=== PATIENT | female | born 1960 | race Caucasian/White ===

== ENCOUNTER 2016-06-06 09:01 | Emergency (ER) | payer BC ==
[2016-06-06 09:54] LABS: ALBUMIN 4.5 g/dL (3.5-5.0); ALKALINE PHOSPHATASE 544 U/L (38-126); ALT 63 U/L (9-52); AST 76 U/L (14-36); BILIRUBIN, DIRECT 1.8 mg/dL (0.0-0.4); BILIRUBIN, TOTAL 2.6 mg/dL (0.2-1.3); BLOOD UREA NITROGEN 42 mg/dL (7-17); CALCIUM 9.8 mg/dL (8.4-10.2); CHLORIDE 106 mmol/L (98-107); CREATININE 1.6 mg/dL (0.5-1.0); EST GLOMERULAR FILTRATION RATE 35 mL/min; GLUCOSE 93 mg/dL (70-100); LIPASE 105 U/L (23-300); POTASSIUM 4.9 mmol/L (3.5-5.1); SODIUM 139 mmol/L (137-145); TOTAL PROTEIN 7.3 g/dL (6.3-8.2)
[2016-06-06 10:06] LABS: EOSINOPHIL % (Manual) 4 % (0.0-6.0); LYMPHOCYTE % (Manual) 8 % (20.0-40.0); MONOCYTE % (Manual) 2 % (2.0-10.0); NEUTROPHIL % (Manual) 86 % (54.0-75.0); PLATELET ESTIMATE DECREASED
[2016-06-06 10:07] LABS: HELMET CELLS PRESENT; TARGET CELLS PRESENT; TEAR DROP CELLS PRESENT
[2016-06-06] MEDS ORDERED: MORPHINE SULFATE 4 MG/ML SYR ONE ×3 (10:12→13:29)
[2016-06-06] MEDS ORDERED: ONDANSETRON HCL 4 MG/2 ML VIAL ONE (10:12)
[2016-06-06 11:26] LABS: THYROID STIMULATING HORMONE 0.21 uIU/mL (0.47-4.68)
[2016-06-06 11:27] LABS: ABO GROUP TYPE A; ANTIBODY SCREEN NEGATIVE; RH TYPE POSITIVE
[2016-06-06 11:28] LABS: CROSSMATCH IMMEDIATE SPIN COMPATIBLE
--- NOTE | 2016-06-06 11:54 | CT REPORT ---
HISTORY: Right upper quadrant pain. Primary sclerosing cholangitis. COMPARISON: February 02, 2012. TECHNIQUE: 5 mm axial images of the abdomen and pelvis after 90 mL Isovue-300. This examination was performed us ing automated exposure control, adjustment of mA or kV according to patient size, and/or use of itera tive reconstruction technique. FINDINGS: Ill-defined lingular and left lower lobe opacities may represent atelectasis or early infiltrate. Juan Jose cified mitral annulus. Persistent splenomegaly. Spleen measures up to 18 cm in greatest dimension. Liver also remains enlarg ed. Pancreas is unremarkable. The patient is status post cholecystectomy. Postoperative changes are s een in the region of the stomach. Adrenal glands are unremarkable. Left kidney interpolar region 3 mm nonobstructing calculus. Left kidney lower pole 1 mm nonobstructing calculus. Left kidney lower pole 1.3 cm cyst. Dilated portal vein with evidence of gastroesophageal, gastrohepatic, and gastrosplenic varices consi stent with portal hypertension. Urinary bladder is distended. Hysterectomy. No evidence of bowel obstruction. IMPRESSION: 1. Lingular/left lower lobe opacities may represent atelectasis or early infiltrate. 2. Persistent hepatosplenomegaly. 3. Portal hypertension with varices. 4. Cholecystectomy. 5. Left kidney nonobstructing intrarenal calculi. 6. Left kidney lower pole 1.3 cm simple cyst. 7. Prior gastric surgery. 8. Hysterectomy. Results were discussed with the referring physician on 06/06/2016 at 11:52 AM. Final Electronic Signature: This report was electronically signed by Korey Beard MD, FACR on 06/06/2016 11:52 AM. rocío /
[2016-06-06 12:03] LABS: HEMATOCRIT 23.1 % (36.0-48.0); HEMOGLOBIN 7.6 g/dL (12.0-16.0); MEAN CELL VOLUME 68.5 fL (80.0-100.0); MEAN CORPUS. HGB CONCENTRATION 32.9 g/dL (32.0-36.0); MEAN CORPUSCULAR HEMOGLOBIN 22.5 pg (29.0-35.0); MEAN PLATELET VOLUME 8.6 fL (7.4-10.4); PLATELET COUNT 70 X 10^3uL (130-440); RED BLOOD COUNT 3.37 X 10^6uL (4.20-6.10); RED CELL DISTRIBUTION WIDTH 15.8 % (11.5-14.5); WHITE BLOOD COUNT 2.7 X 10^3uL (3.9-10.7)
[2016-06-06 12:07] LABS: URINE MUCUS NONE SEEN (Up to 25%); URINE RBC NONE SEEN (0-5/hpf)
[2016-06-06 12:11] LABS: URINE COLOR YELLOW
[2016-06-06 12:12] LABS: URINE APPEARANCE CLEAR; URINE BACTERIA NONE SEEN (<10/hpf); URINE BILIRUBIN NEGATIVE (NEGATIVE); URINE BLOOD NEGATIVE (NEGATIVE); URINE GLUCOSE NORMAL (NEGATIVE); URINE KETONE NEGATIVE (NEGATIVE); URINE LEUKOCYTE ESTERASE NEGATIVE (NEGATIVE); URINE NITRITE NEGATIVE (NEGATIVE); URINE PH 6.5 (5-7); URINE PROTEIN NEGATIVE (NEG - TRACE); URINE SPECIFIC GRAVITY 1.015 (0.001-1.035); URINE SQUAMOUS EPITHELIAL CELL 0-5/hpf (<= 15/hpf); URINE UROBILINOGEN NORMAL (NEG-1mg/dL); URINE WBC 0-4/hpf (0-4/hpf)
--- NOTE | 2016-06-06 14:00 | ER PHYSICIAN DOCUMENTATION ---
Physician Documentation [facility] Name:Aydee Lund Age:56 yrs Sex:Female :1960 Arrival Date:06/06/2016 Time:09:01 Bed1 Private MD:Narciso Shaw EDMalloryWilmer Disposition: 06/06 19:38 Chart complete. tl1 Disposition: 06/06/16 13:10 Discharged to Home/Self Care. Impression: Abdominal Pain, Right Upper Quadrant. - Condition is Good. - Discharge Instructions: ABDOMINAL PAIN, Unknown Cause, (Female). - Prescriptions for Zofran 4 mg Oral Tablet - take 1-2 tablet by ORAL route every 4-6 hours As needed; 10 tablet. - Medical Reconciliation form form. - Follow up: Narciso Shaw MD; When: 1 - 2 days; Reason: Recheck today's complaints, Continuance of care. - Problem is new. - Symptoms have improved. HPI: 09:26 This 56 yrs old Female presents to ER with complaints of Flank Pain - R. tl1 09:26 The patient complains of pain in the right mid back. tl1 09:40 She has a long h/o MMP, including Primary Sclerosing Cholangitis with chronic liver tl1 failure, portal hypertension, varices and ascites and chronic anemia. She is on the liver transplant list for the last 2-3 years. She also has a h/o UC, Scott's thyroiditis, and renal insufficiency. She has been at her baseline until today when she noted the fairly abrupt onset of right flank and RUQ pain that is somewhat reminiscent of about 10 - 15 years ago when she had shingles. The pain is worse when she moves aroung and better when she holds still. No f/c/s. No n/v. No melena, hematochezia, hematemesis. No h/o nephrolithiasis or hematuria. No other urinary symptoms. No cough or hemoptysis. No trauma. She does have chronic low back pain. Historical: - Allergies: Tetanus Toxoid Adsorbed; Carrot; tetatnus antagin; Rifampin; - Home Meds: 1. aripiprazole oral 2. biotin oral 3. Wellbutrin Oral 4. cyanocobalamin (vitamin B-12) oral 5. Lasix Oral 6. Hydroxyzine Oral 7. Enulose oral 8. levothyroxine oral 9. EMLA Topical 10. multivitamin with minerals oral 11. Prilosec Oral 12. Zofran Oral 13. GlycoLax oral 14. Xifaxan oral 15. Aldactone Oral 16. tramadol Oral 17. Triamcinolone Acetonide Topical - PMHx: primary sclerosing colongitis; polycystic ovarian syndrome; scott's thyroiditis; low functioning kidneys; Asthma; CIRRHOSIS; - PSHx: liver biopsies; port; - Tetanus: > 10 years Other pt is allergic . - Ebola Screening: : Patient denies exposure to infectious person. Patient denies travel to an Ebola-affected area in the 21 days before illness onset. . - Immunization history: Pneumococcal vaccine is up to date. - Social history: Smoking status: Patient states former smoker of tobacco. Patient uses marijuana Patient/guardian denies using alcohol. ROS: 09:40 Abdomen/GI: Positive for abdominal pain, Negative for nausea, vomiting, diarrhea, tl1 constipation, hematemesis, black/tarry stool, rectal bleeding. 09:40 : Negative for urinary symptoms, hematuria, pelvic pain, burning with urination, foul smelling urine, vaginal bleeding, vaginal discharge. 09:40 All other systems are negative. Exam: 09:40 Constitutional: The patient appears alert, awake, well developed, in obvious pain, tl1 restless, uncomfortable. 09:40 Head/face: Exam is negative for acute changes. 09:40 Eyes: Periorbital structures: appear normal, Extraocular movements: intact throughout, Conjunctiva: normal, Sclera: icterus, is present, Lids and lashes: appear normal. 09:40 ENT: Exam is negative for acute changes. 09:40 Neck: Lymph nodes: no appreciated lymphadenopathy. 09:40 Cardiovascular: Rate: normal, Rhythm: regular, Heart sounds: normal. 09:40 Respiratory: the patient does not display signs of respiratory distress, Respirations: normal, Breath sounds: are normal. 09:40 Abdomen/GI: Inspection: abdomen appears normal, Bowel sounds: active, Palpation: soft, mild abdominal tenderness, in the right upper quadrant, Liver: no appreciated palpable abnormalities. 09:40 Back: CVA tenderness, that is mild, is noted on the right, vertebral tenderness, is appreciated at T12, L1, L2 and L3, muscle spasm, is not present. 09:40 : CVA tenderness, on the right, Bladder: tenderness, is not appreciated. 09:40 Skin: Exam negative for rash, specifically, no evidence of shingles on her back, flank, or abdomen.. 09:40 Neuro: Exam negative for acute changes. Vital Signs: 09:00 BP 121 / 42; Pulse 55; Temp 97.9; Pulse Ox 97% on R/A; Pain 7/10; st 10:09 BP 108 / 58 (auto/); Pulse 54; Pulse Ox 95% ; st 10:31 BP 128 / 58 (auto/); Pulse 62; st 10:39 Pain 3/10; st 11:23 BP 114 / 63 (auto/); st 11:25 Pulse 51; Pulse Ox 91% on R/A; Pain 5/10; st 11:31 BP 127 / 59 (auto/); st 12:09 Pain 1/10; st 13:18 BP 118 / 51 LA Sitting; Pulse 65; Resp 18; Pulse Ox 92% on R/A; Pain 3/10; la 12:[address] MDM: 09:22 Patient medically screened. tl1 12:00 Differential diagnosis: nephrolithiasis, pyelonephritis, UTI, diverticulitis, tl1 pancreatitis, ruptured AAA, Shingles prodrome, liver abscess, hepatic malignancy, SBP, perforated ulcer, appendicitis. Data reviewed: vital signs, nurses notes, old medical records, lab test result(s), radiologic studies, CT scan. Data reviewed: and as a result, I will discharge patient. Data interpreted: acid supervisor: Pulse oximetry:. Counseling: I had a detailed discussion with the patient and/or guardian regarding: the historical points, exam findings, and any diagnostic results supporting the discharge/admit diagnosis, lab results, radiology results, the need for outpatient follow up, for a recheck, with the patient's primary care provider, a staging technician, to return to the emergency department if symptoms worsen or persist or if there are any questions or concerns that arise at home. Medication response: The patient's symptoms have improved, morphine partially relieved the patient's pain. Response to treatment: the patient's symptoms have mildly improved after treatment. ED course: Hemodynamically stable. Pain fairly well controlled. Serial exams benign. CT of the abdomen little changed from 2011. I told her I am suspicious that this may be a shingles prodrome and to look out for any rash. With the exception of the amount of pain she is having, I think she is at her baseline with regard to her other medical problems. She has an appointment with her pillow filler on 06/24 and I encouraged her to keep it. She should f/u with Dr Shaw early this next week and return here sooner for any worsening or new concerns.. 13:00 Special discussion: I discussed with the patient/guardian in detail that at this point tl1 there is no indication for admission to the hospital. It is understood, however, that if the symptoms persist or worsen the patient needs to return immediately for re-evaluation. There has been recent discussion about the need for a transfusion soon. She is getting pretty anemic, with a HGB OF 7.6 today, albeit at a slow rate, and I don't think she needs to be transfused today in the ED or be admitted. Her PCP, Dr Shaw was not available to talk today, so I advised Aydee that she should contact him first thing Wednesday, 2 days from now for consideration of a transfusion Wednesday or Wednesday. The T&C should be good for 72 hours.. 06/06 10:04 Order name: BASIC METABOLIC PANEL; Complete Time: 13: EDMS 06/06 19:39 Interpretation: SODIUM 139; POTASSIUM 4.9; GLUCOSE 93; BLOOD UREA NITROGEN 42; tl1 CREATININE 1.6; CALCIUM 9.8. 06/06 10:04 Order name: HEPATIC PANEL; Complete Time: 13:08 EDMS 06/06 19:39 Interpretation: ALT 63; ALBUMIN 4.5; ALKALINE PHOSPHATASE 544; AST 76; BILIRUBIN, TOTAL tl1 2.6; BILIRUBIN, DIRECT 1.8; TOTAL PROTEIN 7.3. 06/06 10:04 Order name: LIPASE; Complete Time: 13:08 EDMS 06/06 19:39 Interpretation: LIPASE 105. tl1 06/06 10:09 Order name: MANUAL DIFFERENTIAL; Complete Time: 13:08 EDMS 06/06 19:39 Interpretation: NEUTROPHIL % (Manual) 86; LYMPHOCYTE % (Manual) 8; MONOCYTE % (Manual) tl1 2; EOSINOPHIL % (Manual) 4. 06/06 11:27 Order name: THYROID STIMULATING HORMONE; Complete Time: 13:08 EDMS 06/06 19:39 Interpretation: Abnormal: THYROID STIMULATING HORMONE 0.21. 1 06/06 11:28 Order name: ABO GROUP; Complete Time: 13:08 EDMS 06/06 19:40 Interpretation: ABO GROUP TYPE A. tl1 06/06 11:28 Order name: RH TYPE; Complete Time: 13:08 EDMS 06/06 19:40 Interpretation: RH TYPE POSITIVE. 1 06/06 11:28 Order name: ANTIBODY SCREEN; Complete Time: 13:08 EDMS 06/06 19:40 Interpretation: ANTIBODY SCREEN NEGATIVE. tl1 06/06 11:28 Order name: CROSSMATCH IMMEDIATE SPIN; Complete Time: 13:08 EDMS 06/06 19:40 Interpretation: Normal: CROSSMATCH IMMEDIATE SPIN COMPATIBLE. 1 06/06 11:29 Order name: CROSSMATCH IMMEDIATE SPIN; Complete Time: 13:08 EDMS 06/06 19:40 Interpretation: CROSSMATCH IMMEDIATE SPIN COMPATIBLE. 1 06/06 12:04 Order name: CBC WITHOUT A DIFFERENTIAL; Complete Time: 13:08 EDMS 06/06 19:40 Interpretation: WHITE BLOOD COUNT 2.7; HEMOGLOBIN 7.6; HEMATOCRIT 23.1; PLATELET COUNT tl1 70. 06/06 12:12 Order name: UA W/ MICRO -CULTURE IF IND; Complete Time: 13:08 EDMS 06/06 19:40 Interpretation: Normal. 1 06/06 11:55 Order name: CAT SCAN; ABD/PEL W [id number]; Complete Time: 13:08 EDMS 06/06 19:41 Interpretation: See radiologist interpretation. 1 Dispensed Medications: 10:09 Drug: morphine 4 mg; Route: IVP; Site: right subclavian; st 10:39 Follow up: Response: Pain is decreased st 10:09 Drug: Zofran 4 mg; Route: IVP; Infused Over: 2 mins; Site: right subclavian; st 10:39 Follow up: Response: Nausea is decreased st 10:09 Drug: NS 0.9% 1000 ml; Route: IV; Rate: bolus; Site: right subclavian; st 12:08 Follow up: IV Status: Completed infusion; IV Intake: 1000ml st 11:29 Drug: morphine 4 mg; Route: IVP; Site: right subclavian; st 12:08 Follow up: Response: Pain is decreased st 12:09 Drug: NS 0.9% 1000 ml; Route: IV; Rate: 250 ml/hr; Site: right subclavian; st 13:23 Drug: morphine 4 mg; Route: IVP; Site: right subclavian; la 13:57 Drug: heparin Flush 100 units; Route: IVP; Site: left subclavian; st Signatures: Jennifer Duran RN RN st Alexander, Linda la Leigh, Tom, MD MD tl1
--- NOTE | 2016-06-06 14:00 | ER NURSING DOCUMENTATION ---
Nurse's Notes [facility] Name:Aydee Lund Age:56 yrs Sex:Female :1960 Arrival Date:06/06/2016 Time:09:01 Bed1 Private MD:Narciso Shaw Diagnosis:Abdominal Pain, Right Upper Quadrant Presentation: 06/06 09:00 Presenting complaint: Presenting complaint: Patient states: pt states that she has had st some epigastric and flank pain that has been building for a few days. 09:00 Transition of care: Home. st 09:00 Method Of Arrival: Private Vehicle 09:12 Acuity: DEBBY 2 st Triage Assessment: 09:00 General: Appears in no apparent distress, chronic ill. Behavior is cooperative. st General: pt states that her liver is failing and she is waiting for a liver transplant.. Pain: Complains of pain in epigastric area, posterior aspect of right lateral abdomen and right upper quadrant Pain currently is 7 out of 10 on a pain scale. Pain began building for a few days getting to be unbearable. EENT: Oral mucosa is dry. Neuro: No deficits noted. Cardiovascular: No deficits noted. Respiratory: No deficits noted. GI: Abdomen is flat, non- distended Abd is soft X 4 quads Abdomen is tender to palpation in epigastric area, posterior aspect of right lateral abdomen and right upper quadrant Reports nausea. : Reports pt states that due to her kidney problems she only urinates about once a day. pt denies any pain or discomfort with urination. Derm: Skin is jaundiced. Historical: - Allergies: Tetanus Toxoid Adsorbed; Carrot; tetatnus antagin; Rifampin; - Home Meds: 1. aripiprazole oral 2. biotin oral 3. Wellbutrin Oral 4. cyanocobalamin (vitamin B-12) oral 5. Lasix Oral 6. Hydroxyzine Oral 7. Enulose oral 8. levothyroxine oral 9. EMLA Topical 10. multivitamin with minerals oral 11. Prilosec Oral 12. Zofran Oral 13. GlycoLax oral 14. Xifaxan oral 15. Aldactone Oral 16. tramadol Oral 17. Triamcinolone Acetonide Topical - PMHx: primary sclerosing colongitis; polycystic ovarian syndrome; evie's thyroiditis; low functioning kidneys; Asthma; CIRRHOSIS; - PSHx: liver biopsies; port; - Tetanus: > 10 years Other pt is allergic . - Ebola Screening: : Patient denies exposure to infectious person. Patient denies travel to an Ebola-affected area in the 21 days before illness onset. . - Immunization history: Pneumococcal vaccine is up to date. - Social history: Smoking status: Patient states former smoker of tobacco. Patient uses marijuana Patient/guardian denies using alcohol. Screenin:50 Infectious Disease Risk None. Abuse screen: Denies threats or abuse. Denies injuries st from another. pt feels safe at home. Nutritional screening: No deficits noted. Assessment: 11:48 General: pt states that her pain is better. . st 12:43 General: pt is resting quietly.. st Vital Signs: 09:00 BP 121 / 42; Pulse 55; Temp 97.9; Pulse Ox 97% on R/A; Pain 7/10; st 10:09 BP 108 / 58 (auto/); Pulse 54; Pulse Ox 95% ; st 10:31 BP 128 / 58 (auto/); Pulse 62; st 10:39 Pain 3/10; st 11:23 BP 114 / 63 (auto/); st 11:25 Pulse 51; Pulse Ox 91% on R/A; Pain 5/10; st 11:31 BP 127 / 59 (auto/); st 12:09 Pain 1/10; st 13:18 BP 118 / 51 LA Sitting; Pulse 65; Resp 18; Pulse Ox 92% on R/A; Pain 3/10; la 12:[address] ED Course: 09:03 Patient arrived in ED. ama 09:03 Narciso Shaw MD is Private Physician. ama 09:12 Jennifer Duran RN is Primary Nurse. st 09:22 Wilmer Tejada MD is Attending Physician. tl1 09:[address] 09:[address] 09:[address] 09:51 Valuables Remains with patient Patient has correct armband on for positive st identification. Placed in gown. Bed in low position. Call light in reach. Side rails up X 1. Pulse Ox - RN Monitoring Only NIBP On - RN Monitoring Only. 10:23 Inserted port access switched to a power port needle. st 11:[address] mr 11:[address] Patient [address] back from [address]. mr 11:[address] 13:08 Narciso Shaw MD is Referral Physician. tl1 Administered Medications: 10:09 Drug: morphine 4 mg; Route: IVP; Site: right subclavian; st 10:39 Follow up: Response: Pain is decreased st 10:09 Drug: Zofran 4 mg; Route: IVP; Infused Over: 2 mins; Site: right subclavian; st 10:39 Follow up: Response: Nausea is decreased st 10:09 Drug: NS 0.9% 1000 ml; Route: IV; Rate: bolus; Site: right subclavian; st 12:08 Follow up: IV Status: Completed infusion; IV Intake: 1000ml st 11:29 Drug: morphine 4 mg; Route: IVP; Site: right subclavian; st 12:08 Follow up: Response: Pain is decreased st 12:09 Drug: NS 0.9% 1000 ml; Route: IV; Rate: 250 ml/hr; Site: right subclavian; st 13:23 Drug: morphine 4 mg; Route: IVP; Site: right subclavian; la 13:57 Drug: heparin Flush 100 units; Route: IVP; Site: left subclavian; st Intake: 12:08 IV: 1000ml; Total: 1000ml. st Outcome: 13:10 Discharge ordered by . tl1 13:59 Patient [address] the ED. st 04/02 09:27 Discharge F/U Call: Spoke with: patient. Are you having any pain? yes. How are you nf managing your pain? Patient is taking medication: taking vicodin but will switch to percocet, did not receive prescription for either - had at home already; discussed constipation with narcotics and patient states she will start herself on miralax Other intervention(s) for pain being used: resting flat in bed Have you filled your prescriptions? no. Reasons not filled: received prescriotion for zofran, did not fill because she had some at home Did your discharge instructions answer all of your questions? yes Have you made a f/u appointment? No. Reason for no f/u appt: weekend/states she will call for appointment with Pinky first thing tomorrow morning Overall Care on a scale of 1-10 with 10 being the best care, you rate our care as: the rating of 10. Further F/U necessary? None needed Signatures: Jennifer Duran RN RN st Friel, Nicole, RN RN nf Averdick, Andrew, Kenji Ellis, Wilmer Clark MD MD tl1 Em[facility] Pitts mr
== END 2016-06-06 13:59 | disposition home or self-care (01) ==
LOC: ER 09:01
DX: R10.11 Right upper quadrant pain (principal); Z86.19 Personal history of other infectious and parasitic diseases; K72.10 Chronic hepatic failure without coma; K83.0 Cholangitis; E06.3 Autoimmune thyroiditis; D64.9 Anemia, unspecified; K76.6 Portal hypertension; M54.5 Low back pain; Z79.899 Other long term (current) drug therapy
CPT/HCPCS: 74177; 80048; 80076; 81001; 83690; 84443; 85007; 85027; 86850; 86900; 86901; 86920; 96361; 96374; 96375; 96376; 99284; J1642; J2270; J2405; P9040-BL

== ENCOUNTER 2016-06-07 10:15 | Inpatient (IN) | payer BC ==
[2016-06-06 11:28] LABS: CROSSMATCH IMMEDIATE SPIN COMPATIBLE
[2016-06-07] MEDS ORDERED: HOME MEDICATION LIST NEEDED 1 EA EACH MC ONE (11:13)
[2016-06-07] MEDS ORDERED: HYDROmorphone HCL 1 MG/ML SYR ONE (11:15)
[2016-06-07] MEDS ORDERED: NORMAL SALINE 500 ML IV ONE (11:16)
[2016-06-07] MEDS ORDERED: ONDANSETRON HCL 4 MG/2 ML VIAL IV PRN (11:20)
[2016-06-07] MEDS ORDERED: MORPHINE SULFATE 2 MG/ML SYR IV PRN (11:20)
[2016-06-07 11:41] LABS: A/G RATIO 1.6; ALBUMIN 3.9 g/dL (3.5-5.0); ALKALINE PHOSPHATASE 462 U/L (38-126); ALT 60 U/L (9-52); AST 63 U/L (14-36); BILIRUBIN, TOTAL 2.7 mg/dL (0.2-1.3); BLOOD UREA NITROGEN 42 mg/dL (7-17); CALCIUM 9.5 mg/dL (8.4-10.2); CHLORIDE 106 mmol/L (98-107); CREATININE 1.6 mg/dL (0.5-1.0); EST GLOMERULAR FILTRATION RATE 35 mL/min; GLUCOSE 89 mg/dL (70-100); POTASSIUM 4.8 mmol/L (3.5-5.1); SODIUM 138 mmol/L (137-145); TOTAL PROTEIN 6.4 g/dL (6.3-8.2)
[2016-06-07 11:52] LABS: MEAN CELL VOLUME 68.6 fL (80.0-100.0); MEAN PLATELET VOLUME 7.7 fL (7.4-10.4); RED BLOOD COUNT 3.16 X 10^6uL (4.20-6.10)
[2016-06-07 11:55] LABS: HEMOGLOBIN 6.9 g/dL (12.0-16.0)
[2016-06-07 11:56] LABS: HEMATOCRIT 21.7 % (36.0-48.0); PLATELET COUNT 63 X 10^3uL (130-440); WHITE BLOOD COUNT 2.9 X 10^3uL (3.9-10.7)
[2016-06-07 11:57] LABS: BAND% (Manual) 6 % (0.0-1.0); LYMPHOCYTE % (Manual) 8 % (20.0-40.0); MONOCYTE % (Manual) 6 % (2.0-10.0); NEUTROPHIL % (Manual) 80 % (54.0-75.0); RED CELL DISTRIBUTION WIDTH 15.9 % (11.5-14.5)
[2016-06-07 11:58] LABS: PLATELET ESTIMATE DECREASED
[2016-06-07] MEDS ORDERED: DIPHENHYDRAMINE 50 MG/ML VIAL IV PRN (12:01)
[2016-06-07] MEDS ORDERED: ACETAMINOPHEN 325 MG TABLET PO PRN ×2 (12:01→13:56)
--- NOTE | 2016-06-07 12:06 | ER NURSING DOCUMENTATION ---
Nurse's Notes [facility] Name:Aydee Lund Age:56 yrs Sex:Female :1960 Arrival Date:06/07/2016 Time:10:15 Bed4 Private MD:Narciso Shaw Diagnosis:Sciatica;Difficulty Walking;Pain- Acute, other Presentation: 06/07 10:17 Transition of care: Home. Notified ED Physician of patient's arrival and CC Chuy Godfrey nf notified. 10:17 Method Of Arrival: EMS: [id number] nf 10:17 Acuity: DEBBY 3 nf 10:17 Presenting complaint: Patient states: left hip/buttock pain with pain radiating down nf leg and into big toe; seen in ER yesterday - was offered admission for pain control but declined due to having an autistic son at home; pain continued today and was not relieved with vicodin so patient switched to percocet, took 2 percocet 20 minutes prior to calling amulance and reports lessening of pain upon arrival to ER; IV not started [employer] due to patient having a mediport to access. Triage Assessment: 10:17 Pain: Complains of pain in left hip/buttock Pain radiates to left leg Alleviated by nf medications, rest, repositioning, Also complains of constipation. Neuro: Moves all extremities. Musculoskeletal: Tenderness present in left gluteal fold and left hip and left low back Reports numbness in left leg abd foot tingling of left leg and foot. 10:17 Cardiovascular: Capillary refill < 3 seconds pedal pulses marked. nf 10:19 General: Appears ill, well nourished, well groomed, Behavior is pleasant. nf Historical: - Allergies: Tetanus Toxoid Adsorbed; Carrot; tetatnus antagin; Rifampin; - Home Meds: 1. aripiprazole oral 2. Wellbutrin Oral 3. biotin oral 4. cyanocobalamin (vitamin B-12) oral 5. Hydroxyzine Oral 6. Lasix Oral 7. Enulose oral 8. EMLA Topical 9. levothyroxine oral 10. multivitamin with minerals oral 11. Prilosec Oral 12. GlycoLax oral 13. Zofran Oral 14. Aldactone Oral 15. Xifaxan oral 16. tramadol Oral 17. Triamcinolone Acetonide Topical - PMHx: primary sclerosing colongitis; evie's thyroiditis; polycystic ovarian syndrome; low functioning kidneys; ASTHMA; CIRRHOSIS; Abdominal Pain, Right Upper Quadrant (June 06, 2016); - PSHx: liver biopsies; port; - Tetanus: unknown. - Ebola Screening: : No symptoms or risks identified at this time. . - Immunization history: Pneumococcal vaccine is up to date, Flu Vaccine < 1 year. - Social history: Smoking status: Patient states former smoker of tobacco. Patient uses marijuana Patient/guardian denies using alcohol. Screenin:20 Infectious Disease Risk None. Abuse screen: Denies threats or abuse. Nutritional nf screening: No deficits noted. Vital Signs: 10:24 BP 113 / 56; Pulse 52; Resp 24; Temp 98.2(O); Pulse Ox 98% on R/A; Weight 58.51 kg (R); arc Height 5 ft. 7 in. (170.18 cm) (R); Pain 6/10; 11:23 BP 124 / 66; Pulse 60; Resp 12; Pulse Ox 99% on 2 lpm NC; Pain 4/10; nf 11:55 BP 121 / 64; Pulse 63; Resp 12; Pulse Ox 98% on 2 lpm NC; Pain 6/10; nf 10:24 Body Mass Index 20.20 (58.51 kg, 170.18 cm) [facility] ED Course: 10:16 Patient arrived in ED. arc 10:17 Narciso Shaw MD is Private Physician. arc 10:17 Yokasta Lopez, RN is Primary Nurse. nf 10:18 Triage completed. nf 10:20 Valuables Remains with patient. Pulse Ox - RN Monitoring Only NIBP On - RN Monitoring nf Only. Door closed. Noise minimized. Lights dimmed. Moved to private room. Verbal reassurance given. Warm blanket given. Pillow given. 10:25 Oxygen Oxygen administration via nasal cannula @ 2L/min. nf 10:30 position of comfort. nf 10:31 Erick Vera MD is Attending Physician. jm 10:50 Accessed Medi-Port and blood collected. using accessed w/ # 20 Domingo needle, sterile nf technique, per hospital protocol. Clean & dry. Dressing intact. Flushes easily. 11:12 Radha Werner MD is Admitting Physician. jm 11:20 Oral care given. nf Administered Medications: 11:10 Drug: Dilaudid 0.5 mg; Route: IVP; Site: right subclavian; nf 12:00 Follow up: Response: No change in condition nf 11:10 Drug: NS 0.9% 500 ml; Route: IV; Rate: 125 ml/hr; Site: right subclavian; nf 12:00 Follow up: IV Status: Infusing continued upon transfer nf 11:55 Drug: morphine 2 mg; Route: IVP; Site: right subclavian; nf 12:02 Follow up: Response: Medication administered at discharge. nf Outcome: 11:12 Decision to Admit by Provider. maxwell 11:55 Admitted to Med/surg accompanied by nurse, via stretcher, with oxygen, with chart. nf 11:55 Condition: stable 11:55 Report given to Eileen 11:55 Discharge Assessment: Patient awake, alert and oriented x 3. No cognitive and/or functional deficits noted. Patient verbalized understanding of disposition instructions. 11:55 Discharge instructions given to patient, family, Instructed on need to admit Demonstrated understanding of instructions, medications. 12:05 Patient left the ED. nf Signatures: Yokasta Lopez, BALTA RN Erick Garcia MD MD jm Chew, Amelia, Reg Reg arc
--- NOTE | 2016-06-07 12:06 | ER PHYSICIAN DOCUMENTATION ---
Physician Documentation [facility] Name:Aydee Lund Age:56 yrs Sex:Female :1960 Arrival Date:06/07/2016 Time:10:15 Bed4 Private MD:Narciso Shaw ED, John Disposition: 06/07/16 11:12 Admit ordered for Radha Werner. Preliminary diagnosis are Sciatica, Difficulty Walking, Pain- Acute, other. - Bed requested for Medical/Surgical. - Condition is Fair. - Problem is new. - Symptoms are unchanged. 23 HR OBS Yes HPI: 06/07 10:50 This 56 yrs old Female presents to ER via EMS with complaints of Pain All jm Over. 10:50 The patient presents with pain, that is acute. The complaints affect the left hip, jm lateral aspect of left foot and left gluteal fold. Context: resulted from an unknown cause, the patient can partially bear weight. Onset: The symptom(s)/episode began/occurred yesterday, and became worse today. Modifying factors: the symptoms are aggravated by nothing. Associated signs and symptoms: Pertinent positives: tingling. Treatment prior to arrival includes: prescription medications, percocet- helped a little . Severity of symptoms: in the emergency department the symptoms are unchanged. The patient has not experienced similar symptoms in the past. The patient has been recently seen at the [facility] Emergency Department, yesterday, for unrelated complaints, Pt was here yesterday for RUQ abd pain. She had a bunch of labs done which were normal for her. She was still in pain at time of discharge and was offered admission, but declined. . Pt woke up today in excruciating pain that starts in her L buttock/hip and shoots down her leg all the way to her big toe. No hx of sciatica. No trauma or falls. . Historical: - Allergies: Tetanus Toxoid Adsorbed; Carrot; tetatnus antagin; Rifampin; - Home Meds: 1. aripiprazole oral 2. Wellbutrin Oral 3. biotin oral 4. cyanocobalamin (vitamin B-12) oral 5. Hydroxyzine Oral 6. Lasix Oral 7. Enulose oral 8. EMLA Topical 9. levothyroxine oral 10. multivitamin with minerals oral 11. Prilosec Oral 12. GlycoLax oral 13. Zofran Oral 14. Aldactone Oral 15. Xifaxan oral 16. tramadol Oral 17. Triamcinolone Acetonide Topical - PMHx: primary sclerosing colongitis; evie's thyroiditis; polycystic ovarian syndrome; low functioning kidneys; ASTHMA; CIRRHOSIS; Abdominal Pain, Right Upper Quadrant (June 06, 2016); - PSHx: liver biopsies; port; - Tetanus: unknown. - Ebola Screening: : No symptoms or risks identified at this time. . - Immunization history: Pneumococcal vaccine is up to date, Flu Vaccine < 1 year. - Social history: Smoking status: Patient states former smoker of tobacco. Patient uses marijuana Patient/guardian denies using alcohol. ROS: 10:55 Constitutional: Negative for fatigue, fever. jm 10:55 Eyes: Negative for blurry vision, visual disturbance. 10:55 ENT: Negative for sinus congestion, sinus pain, sore throat. 10:55 Neck: Negative for pain with movement, rash. 10:55 Cardiovascular: Negative for chest pain. 10:55 Respiratory: Negative for cough, shortness of breath. 10:55 Abdomen/GI: Negative for abdominal pain, nausea, vomiting. 10:55 Back: Positive for pain at rest, of the left low back. 10:55 MS/extremity: Positive for paresthesias, tenderness. 10:55 Skin: Negative for rash, swelling. 10:55 Neuro: Positive for tingling. 10:55 Psych: Negative for drug dependence, alcohol dependence. 10:55 All other systems are negative. Exam: 10:56 Constitutional: The patient appears alert, awake, comfortable. jm 10:56 Eyes: Periorbital structures: appear normal, Conjunctiva: normal. 10:56 ENT: Mouth: is normal, Voice: is normal. 10:56 Neck: Trachea: is midline with no obvious abnormalities, ROM/movement: is normal. 10:56 Cardiovascular: Rate: bradycardic, Rhythm: regular. 10:56 Respiratory: Respirations: normal, Breath sounds: are normal. 10:56 Abdomen/GI: Bowel sounds: normal, Palpation: abdomen is soft and non-tender. 10:56 Back: CVA tenderness, is absent, vertebral tenderness, is not appreciated. 10:56 Back: Straight leg raises: left lower extremity illicits pain, at 15 degrees. 10:56 Musculoskeletal/extremity: Pulses: are normal with no appreciated deficits, the left foot Tingling of extremity. TTP around the piraformis muscle. . 10:56 Skin: Appearance: Color: pink, no rash present. 10:56 Neuro: Mentation: is normal, Memory: is normal, Sensation: tingling, that is moderate, of the left foot. 10:56 Psych: Behavior/mood is pleasant, cooperative, Affect is calm. Vital Signs: 10:24 BP 113 / 56; Pulse 52; Resp 24; Temp 98.2(O); Pulse Ox 98% on R/A; Weight 58.51 kg (R); arc Height 5 ft. 7 in. (170.18 cm) (R); Pain 6/10; 11:23 BP 124 / 66; Pulse 60; Resp 12; Pulse Ox 99% on 2 lpm NC; Pain 4/10; nf 11:55 BP 121 / 64; Pulse 63; Resp 12; Pulse Ox 98% on 2 lpm NC; Pain 6/10; nf 10:24 Body Mass Index 20.20 (58.51 kg, 170.18 cm) arc MDM: 10:32 Patient medically screened. 11:00 Differential diagnosis: sciatica. Data reviewed: vital signs, nurses notes, old medical jm records, lab test result(s), and as a result, I will admit patient. Counseling: I had a detailed discussion with the patient and/or guardian regarding: the historical points, exam findings, and any diagnostic results supporting the discharge/admit diagnosis, lab results, the need for further work-up and treatment in the hospital. 11:10 Physician consultation: Radha Werner MD regarding admission, and will see patient immediately, later today. Admission orders: after a detailed discussion of the patient's condition and case, the admit orders are written by me. ED course: Pt w classic Sciatic nerve pain that seems to be originating from her piriformis muscle. Pt requires IV pain meds and is definitely a fall risk. I spoke w Dr. Werner who accepted admission. CT from yesterday reviewed again by Sheree, who sates there are no abnormalities on CT, but MRI would be more helpful to look for any disc bulges. CBC also came back lower today at 6.9, so I feel that she needs transfusion. Dr. Werner agrees. She will get transfused on the floor. . 06/07 11:42 Order name: COMPREHENSIVE METABOLIC PANEL; Complete Time: 12:06 EDMS 06/07 11:57 Order name: CBC W/ MANUAL DIFFERENTIAL; Complete Time: 12:06 EDMS 06/07 12:06 Interpretation: Abnormal: HEMOGLOBIN 6.9; HEMATOCRIT 21.7. maxwell 06/07 11:21 Order name: Oxygen; Complete Time: 11:21 nf Dispensed Medications: 11:10 Drug: Dilaudid 0.5 mg; Route: IVP; Site: right subclavian; nf 12:00 Follow up: Response: No change in condition nf 11:10 Drug: NS 0.9% 500 ml; Route: IV; Rate: 125 ml/hr; Site: right subclavian; nf 12:00 Follow up: IV Status: Infusing continued upon transfer nf 11:55 Drug: morphine 2 mg; Route: IVP; Site: right subclavian; nf 12:02 Follow up: Response: Medication administered at discharge. nf Signatures: Yokasta Lopez RN RN nf Erick Vera MD MD
[2016-06-07] MEDS ORDERED: DIPHENHYDRAMINE 25 MG CAPSULE PO ONE (13:00)
[2016-06-07] MEDS ORDERED: ACETAMINOPHEN 325 MG TABLET PO SCH (13:03)
[2016-06-07] MEDS ORDERED: POLYETHYLENE GLYCOL 3350 17 GM POWD.PACK PO PRN (13:28)
[2016-06-07] MEDS ORDERED: TRIAMCINOLONE 0.1% TOPICAL PRN (13:28)
[2016-06-07] MEDS ORDERED: traMADol HCL 50 MG TABLET PO PRN (13:28)
[2016-06-07] MEDS ORDERED: LIDOCAINE/PRILOCAINE CREAM 5 GM TUBE TOPICAL PRN (13:28)
[2016-06-07] MEDS ORDERED: ONDANSETRON ODT 4 MG TAB.RAPDIS PO PRN (13:28)
[2016-06-07] MEDS: MORPHINE SULFATE 2 MG/ML SYR IV PRN ×6 (13:39→23:17)
[2016-06-07] MEDS ORDERED: NORMAL SALINE 250 ML IV ONE (15:00)
--- NOTE | 2016-06-07 16:25 | HISTORY & PHYSICAL ---
PRIMARY CARE PROVIDER: Dr. Narciso Shaw. DECORATOR INSPECTOR: Dr. Maine Ricardo, [facility]. CONCRETE HOPPER OPERATOR: Dr. Max, [facility] and Dr. Lisa Gonzalez. CHIEF COMPLAINT: Left buttock pain. HISTORY OF PRESENT ILLNESS: This is a 56-year-old white female with a history of primary sclerosing cholangitis, who was seen in the emergency room yesterday for right upper quadrant abdominal pain of uncertain etiology. 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 Her CT of the abdomen and pelvis yesterday did not show any acute changes other than a lingular/left lower lobe opacities which may represent atelectasis versus infiltrate. She presented to the emergency room this morning with the abrupt onset of left hip and gluteus pain with radiation to her left great toe with minimal ability to ambulate. She has not had any trauma or falls. Her symptoms started yesterday and greatly worsened today. She had significant associated numbness upon presentation which has now completely resolved. She has never had a prior history of sciatica. She states that she got up to walk today and had severe pain. She rated her pain as 12/10 at home and now it is 4-5/10. While here in the hospital she was unable to ambulate to the bathroom secondary to pain and feeling lightheaded. She had some significant shortness of breath with her extreme pain which has now resolved. No chest pain. REVIEW OF SYSTEMS: She has had 2 falls in the past 2 months which are unexplained and the most recent episode was 1 month ago. She was walking up stairs and had a brief syncopal episode she believes that lasted less than 1 minute. She is not aware of what happened. She sustained a right rib injury which has mostly healed now. She had a cardiac evaluation which was negative including Holter monitor and echocardiogram. She has not had any recent fevers or chills. She has occasional hot flashes. She has mild chronic nausea. She had significant nausea yesterday which has now resolved. No headaches, no visual changes, no signs or symptoms of a stroke. Specifically no dysphagia or slurred speech or weakness of her extremities other than left lower extremity weakness secondary to sciatica. No dysuria. She has not had any recurrence of her right upper quadrant abdominal pain. She does not use home oxygen. She states she has significant interrupted sleep pattern, sleeping for 2 hours, awakening for about 10 minutes and then again repeating this pattern throughout the night. She has never had a sleep study done in the past. She states she has had 4 transfusions in the past 5 years. She has not had any recent URI symptoms, specifically no cough, no sore throat, no ear pain. She does have some runny nose which is secondary to seasonal allergies. PAST MEDICAL HISTORY 1. Primary sclerosing cholangitis diagnosed August 2007 with a liver biopsy. She is on the transplant list. This liver biopsy was complicated by sepsis and a portal vein clot. 2. Mild nonobstructive coronary artery disease noted on heart catheterization. 3. History of mitral regurgitation and status post mitral valve replacement in January 2013. 4. Syncope 1 month ago as above with cardiac evaluation negative. 5. Hypertension. 6. Chronic depression. 7. History of Hashimotos thyroiditis with current hypothyroidism. 8. History of polycystic ovarian syndrome. 9. Chronic renal insufficiency. 10. Asthma which she describes as mostly exercise induced bronchospasm. 11. Vitamin B12 deficiency. PAST SURGICAL HISTORY 1. Status post laparoscopic cholecystectomy in February 2006. 2. Gastric bypass surgery for morbid obesity. 09/21/2005. She had a tremendous amount of weight loss. 3. Status post bilateral Lasik in 2003. 4. Status post total vaginal hysterectomy with bilateral salpingo-oophorectomy for polycystic ovarian syndrome and fibroids. 5. Status post D&C of the uterus in 1996 secondary to spontaneous miscarriage. 6. Status post right open reduction internal fixation of ankle for fracture. 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 She is . 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 She is a former smoker, quit November 16, 2012. No alcohol use. She has occasional marijuana use for nausea. No illicit drug use. FAMILY HISTORY: She is adopted. She does know that her mother from metastatic ovarian cancer. She had a history of morbid obesity and weighed over 400 pounds when she . DATA: Laboratories: From today bicarbonate 21, BUN 42, creatinine 1.6. Her total bilirubin is 2.7. AST 63, ALT 60, alkaline phosphatase 462, total protein 6.4, albumin 3.9. CBC: White count 2.9, hemoglobin 6.9, hematocrit 21.7, platelets 63, 80% neutrophils, 6% bands. As compared to yesterday white count was 2.7, hemoglobin was 7.6, hematocrit was 23.1, platelets 70. Chemistries are similar: TSH yesterday low at 0.21. Urinalysis yesterday completely negative. IMAGING: CT abdomen and pelvis done yesterday 1. Lingular/left lower lobe opacities may represent atelectasis or early infiltrate. 2. Persistent hepatosplenomegaly. 3. Cholecystectomy. 4. Left kidney nonobstructing intrarenal calculi. 5. Left kidney lower pole 1.3 cm simple cyst. 6. Prior gastric surgery. 7. Hysterectomy. PHYSICAL EXAMINATION VITAL SIGNS: In the emergency room temperature 98.2, respiratory rate 24, pulse 52, blood pressure 113/56, 98% on room air. Weight 58.51 kg. Height 5 feet 7 inches. Current vital signs: Temperature is 36.4, pulse is 56, respiratory rate 16, 99% on 1 liter. GENERAL: This is a very pleasant female who appears chronically ill and older than her stated age, who is icteric and jaundiced. She is in no apparent distress. HEENT: Her sclerae are clear and icteric. Pupils are miotic but equal, round, reactive to light. Her extraocular movements are intact. Her nares are clear. Her Oropharynx is clear. Her mucous membranes are moist and intact. NECK: Her neck is supple without any carotid bruits. No lymphadenopathy. No jugular venous distention. LUNGS: Good aeration throughout and clear. HEART: Regular rate and rhythm with a prominent 3/6 holosystolic murmur heard throughout the precordium with radiation to the carotids. CHEST: Well healed sternotomy scar. ABDOMEN: Soft, nontender, nondistended with good bowel sounds and no masses; mild hepatosplenomegaly. She has striae and old surgical scars. EXTREMITIES: Muscular atrophy. No cyanosis, clubbing or edema. She has some trace edema of both of her ankles, nonpitting. MUSCULOSKELETAL: She has no midline cervical, thoracic, lumbosacral tenderness , however, she has significant pain with palpation of the left sciatic nerve. She has a positive straight leg raising test on the left, negative on the right and no reproduction of symptoms with raising the right leg. With muscular testing of the left lower extremity she has reproduction of low back pain. NEUROLOGIC: Awake and alert, oriented times 3. Cranial nerves 2-12 are grossly intact without focal deficits. Her motor and sensation is intact. Her upper extremity and right lower extremity reflexes are 2+/4+. Left lower extremity no reflex detected of the left knee and left Achilles. MEDICATIONS Wellbutrin 150 mg twice daily. Vitamin B12 1000 mcg IM monthly. Lasix 20 mg daily. Hydroxyzine 25 mg at bedtime. Synthroid 100 mcg Wednesday, Wednesday, , Wednesday, and Synthroid 50 mcg Wednesday and Wednesday. Emla cream 1 g as needed for itching of her port access. Multivitamin daily. Rifaximin 550 mg twice daily. Abilify 5 mg daily. Biotin 10,000 mcg daily. Zofran 4 mg every 4 hours as needed for nausea and vomiting. Oxycodone immediate release 10 mg every 6 hours as needed for pain. Omeprazole 40 mg daily. Naltrexone 50 mg daily. MiraLax 17 g daily as needed for constipation. Spironolactone 50 mg daily. Tramadol 50 mg every 4 hours as needed for pain. ALLERGIES: Tetanus toxoid, carrot, rifampin. ASSESSMENT: This is a 56-year-old white female with multiple medical problems, who presents with intractable left-sided sciatica and profound anemia. PLAN 1. Fluids, electrolytes and nutrition. Regular diet. She appears to be euvolemic at this time. Electrolytes are unremarkably stable. Will recheck electrolytes tomorrow. Her albumin and total protein are remarkably normal. 2. Musculoskeletal. The patient with acute onset of left-sided sciatica with intractable pain. She was unable to ambulate at home. She will be admitted for pain control and will continue her chronic pain medications in addition to IV morphine. She states that Dilaudid does not help her with her pain. Will ask for physical therapy evaluation. The patient with lack of left lower extremity patellar and Achilles reflexes. I discussed with the patient that CT of the abdomen and pelvis did not show any disk bulges, fractures, spine lesions or stenosis, however, this would not be the test of choice for imaging her back. I have ordered MRI of the lumbosacral spine for tomorrow. 3. Hematology. The patient with anemia of chronic disease. Her hemoglobin and hematocrit are even lower than yesterday and at critical values. Will go ahead and transfuse 2 units. Will check a post transfusion hemoglobin and hematocrit and recheck CBC in the morning. The patient also with low white blood cell count and low platelets. Primary care provider Dr. Shaw to reassess tomorrow. 4. GI. The patient with history of primary sclerosing cholangitis. She has chronically elevated liver function tests. She is on the transplant list. Her LFTs seem to be overall fairly stable. Continue to follow her labs. Her right upper quadrant pain from yesterday is now resolved. CT of the abdomen and pelvis was without change yesterday. 5. Renal. The patient with history of chronic renal insufficiency. Her BUN and creatinine are stable from yesterday. Avoid nephrotoxic agents. 6. Cardiovascular. The patient with history of mitral regurgitation. She is status post mitral valve replacement. She has a longstanding history of hypertension. She is currently on diuretics: Lasix for swelling and spironolactone. Her blood pressures have been stable. The patient has history of nonobstructive coronary artery disease per prior cardiac catheterization. 7. Respiratory. The patient with history of asthma. She is not on home oxygen. She is requiring minimal oxygen here in the hospital most likely secondary to narcotics. Her lungs are clear. CT from yesterday showed a question of left lower lobe and lingular atelectasis versus infiltrate. The patient has not had any recent URI symptoms and no fevers or chills. No cough. Lungs are clear. Doubt any active infiltrate. Continue to follow. 8. Disposition. The patient admitted to observation. I have had a long discussion with her. She is NO COR. She has a DNR order which was signed in Dr. Dia office. Anticipate 1-[address] Narciso ENGLISH
[2016-06-07] MEDS ORDERED: GABAPENTIN 100 MG CAPSULE PO SCH (17:00)
[2016-06-07] MEDS ORDERED: METHYLPREDNISOLONE SOD 125 MG/2 ML VIAL IV SCH (17:00)
[2016-06-07] MEDS: LIDOCAINE 5% 1 PATCH PATCH TRANSDERM SCH (17:22)
[2016-06-07] MEDS: FUROSEMIDE 20 MG TABLET PO SCH ×2 (17:22→20:03)
[2016-06-07] MEDS: METHYLPREDNISOLONE SOD 125 MG/2 ML VIAL IV SCH (19:49)
[2016-06-07] MEDS: hydrOXYzine HCL 10 MG TABLET PO SCH (20:03)
[2016-06-07] MEDS: BUPROPION 150 MG PO SCH (20:03)
[2016-06-07] MEDS: [UNRECOGNIZED DRUG - REMARK] PO SCH (20:03)
[2016-06-07] MEDS ORDERED: NALOXONE HCL 0.4 MG/ML VIAL ONE (23:47)
[2016-06-08] MEDS: MORPHINE SULFATE 2 MG/ML SYR IV PRN ×4 (00:20→07:52)
[2016-06-08] MEDS: LORazepam 2 MG/ML INJ IV PRN ×2 (02:00→08:41)
[2016-06-08] MEDS ORDERED: LORazepam 2 MG/ML INJ ONE (02:06)
[2016-06-08 02:09] LABS: HEMATOCRIT 30.5 % (36.0-48.0); HEMOGLOBIN 9.6 g/dL (12.0-16.0); MEAN CELL VOLUME 73.3 fL (80.0-100.0); MEAN CORPUS. HGB CONCENTRATION 31.4 g/dL (32.0-36.0); MEAN PLATELET VOLUME 7.6 fL (7.4-10.4); PLATELET COUNT 64 X 10^3uL (130-440); RED BLOOD COUNT 4.16 X 10^6uL (4.20-6.10); RED CELL DISTRIBUTION WIDTH 18.2 % (11.5-14.5)
[2016-06-08 02:21] LABS: WHITE BLOOD COUNT 2.2 X 10^3uL (3.9-10.7)
[2016-06-08 02:22] LABS: BAND% (Manual) 8 % (0.0-1.0); BASOPHIL % (Manual) 1 % (0.0-2.0); LYMPHOCYTE % (Manual) 3 % (20.0-40.0); MONOCYTE % (Manual) 2 % (2.0-10.0); NEUTROPHIL % (Manual) 86 % (54.0-75.0); PLATELET ESTIMATE DECREASED
[2016-06-08] MEDS: METHYLPREDNISOLONE SOD 125 MG/2 ML VIAL IV SCH ×2 (02:23→07:51)
[2016-06-08 02:26] LABS: TEAR DROP CELLS PRESENT
[2016-06-08 02:28] LABS: SPHEROCYTE PRESENT
[2016-06-08 02:30] LABS: OVALOCYTES PRESENT
[2016-06-08 06:49] LABS: A/G RATIO 1.5; ALBUMIN 4.3 g/dL (3.5-5.0); BILIRUBIN, TOTAL 3.7 mg/dL (0.2-1.3); CALCIUM 10.3 mg/dL (8.4-10.2); CREATININE 1.6 mg/dL (0.5-1.0); POTASSIUM 4.4 mmol/L (3.5-5.1); TOTAL PROTEIN 7.1 g/dL (6.3-8.2)
[2016-06-08] MEDS: PANTOPRAZOLE 40 MG TABLET PO SCH (07:05)
[2016-06-08] MEDS ORDERED: predniSONE 10 MG TABLET PO SCH (09:00)
[2016-06-08] MEDS ORDERED: NON-FORMULARY MEDICATION (Biotin [Biotin] 10,000 MCG) PO SCH (09:00)
[2016-06-08] MEDS ORDERED: IRON SUCROSE COMPLEX 200 MG in NORMAL SALINE 100 ML IV ONE ×2 (09:41→12:00)
--- NOTE | 2016-06-08 10:02 | MRI REPORT ---
HISTORY: Low back pain radiating into left lower extremity. COMPARISON: Radiographs dated June 07, 2016. TECHNIQUE: Multiplanar multi sequential imaging of the lumbar spine obtained without IV gadolinium. FINDINGS: There is no evidence of fracture or infiltrative marrow process. The conus medullaris is of normal mo rphology and terminates at the T12 vertebral body level. Incidental note is made of an approximately 2 cm left renal cyst. No paraspinal mass. There is mild paraspinal muscle atrophy. Axial images demonstrate the following: L1-L2: Normal disc height. No disc herniation, spinal canal stenosis or foraminal narrowing. L2-L3: Small annular tear posteriorly. No soha disc herniation or spinal canal stenosis. There is mi ld bilateral facet osteoarthrosis at this level. L3-L4: Left paracentral disc extrusion extending along the posterior concavity of the fourth lumbar v ertebra estimated at 17 x 8 mm in size. This results in significant spinal canal stenosis and impress ion upon the transversing nerve roots. There is mild bilateral facet osteoarthrosis with mild bilater al foraminal narrowing. L4-L5: Mild posterior disc bulge with small annular tear. No soha disc herniation or spinal canal st enosis. There is mild bilateral facet osteoarthrosis at this level. L5-S1: No disc herniation, foraminal narrowing, or spinal stenosis. IMPRESSION: 1. Large left-sided disc herniation at L3-4. Final Electronic Signature: This report was electronically signed by Kwadwo Rivas MD on 06/08/2016 9:59 AM. sross /
[2016-06-08] MEDS: BUPROPION 150 MG PO SCH ×2 (10:05→20:12)
[2016-06-08] MEDS: GABAPENTIN 100 MG CAPSULE PO SCH ×2 (10:05→20:14)
[2016-06-08] MEDS: FUROSEMIDE 20 MG TABLET PO SCH (10:06)
[2016-06-08] MEDS: SPIRONOLACTONE 25 MG TABLET PO SCH (10:06)
[2016-06-08] MEDS: MULTIVITAMINS THERAPEUTIC 1 TABLET PO SCH (10:06)
[2016-06-08] MEDS: [UNRECOGNIZED DRUG - REMARK] PO SCH (10:09)
[2016-06-08] MEDS: [UNRECOGNIZED DRUG - REMARK] PO SCH ×2 (10:14→20:17)
[2016-06-08] MEDS: LIDOCAINE 5% 1 PATCH PATCH TRANSDERM SCH ×2 (10:23→18:22)
[2016-06-08] MEDS ORDERED: predniSONE 1 MG TABLET PO SCH (12:00)
[2016-06-08 15:46] LABS: FREE T4 1.45 ng/dL (0.78-2.19)
--- NOTE | 2016-06-08 18:04 | PROGRESS NOTE: IM APSO ---
Assessment and Plan - Date of Encounter Date of Encounter: 06/08/16 (1) Acute left lumbar radiculopathy Status: Acute Assessment and plan: She developed some left buttock pain radiating into the left posterior thigh on for 06/05/16. She had no particular trauma or strain. By 06/07/16 this had become unbearable and prompted her admission to [facility]. today her pain has gradually improved with opioids and steroids. She currently has fairly good control with oxycodone 10 mg by mouth every 4 hours and a Lidoderm patch. Initially she required morphine. She has had IV Solu-Medrol last night and this morning, but converted to prednisone 20 mg this afternoon at lunch time. I am hesitant to use higher doses, because of her history of GERD and esophageal varices. We need to avoid Tylenol because of her chronic liver disease. An MRI today showed a very large left sided L3-L4 disc herniation measuring 1.8 cm in largest diameter. Because of the size of this lesion and because of her acute left leg weakness, I feel that it is best to push her treatment course more rapidly than I normally would for acute herniated disc. I discussed her situation with Dr. Barnes, and he agreed to try to schedule a transforaminal epidural steroid injection for that exiting L4 nerve root as soon as possible in [place]. It is unlikely that this could be scheduled in a timely manner here. Current Visit: Yes (2) Absent reflex of lower extremity Status: Acute Assessment and plan: Her left knee jerk reflexes absent, consistent with left L3-L4 radiculopathy Current Visit: Yes (3) Left leg weakness Status: Acute Assessment and plan: She has some moderate weakness in the left anterior thigh and left foot dorsiflexors. She was able to walk with a walker with a 1 person assist this afternoon, but cannot get to the bathroom by herself safely yet. Current Visit: Yes (4) Primary sclerosing cholangitis Status: Acute Assessment and plan: This is long-standing and moderately severe. She is on the waiting list for a liver transplant.fortunately her INR has been relatively stable at 1.1. Dr. Barnes was comfortable doing an epidural steroid injection with her INR at that level. Current Visit: Yes (5) Status post mitral valve replacement with bioprosthetic valve Status: Acute Assessment and plan: She had a recent echocardiogram that was unchanged from 2 years ago. The valve replacement was done in 2013. Current Visit: Yes (6) Port catheter in place Status: Acute Assessment and plan: This is functioning well. Current Visit: Yes (7) Cirrhosis Status: Acute Assessment and plan: refer to the section on primary sclerosis Current Visit: Yes (8) Iron deficiency anemia Status: Acute Assessment and plan: Her recent lab results confirmed a fairly severe iron deficiency. Her transplant team in [place] suggested a series of 3 iron sucrose injections weekly at 200 mg each. We gave her first dose today without incident. Current Visit: Yes (9) Anemia of chronic disease Status: Acute Assessment and plan: she also has anemia of chronic disease related to her chronic liver problems. Normally her hemoglobin runs at around 8, but had dropped to 6.9 on admission. She feels much better now after receiving 2 units of packed RBCs. Current Visit: Yes (10) Chronic kidney disease, stage 3 Status: Acute Assessment and plan: this is stable. Current Visit: Yes (11) GERD without esophagitis Status: Acute Assessment and plan: this is currently asymptomatic. We have her on pantoprazole Current Visit: Yes (12) Esophageal varices Status: Acute Current Visit: Yes (13) Hypoalbuminemia Status: Acute Assessment and plan: This is a chronic problem for which she receives albumin infusions weekly on . We should be able to skip this week, since she had a blood transfusion Current Visit: Yes (14) Hypothyroidism Status: Acute Assessment and plan: this is slightly overcorrected with a TSH of 0.2 on admission. I am changing her thyroid dosing to 100 mcg MWF and 50 g all other days. Current Visit: Yes (15) Vitamin D deficiency Status: Acute Assessment and plan: she is due for a vitamin D level. Current Visit: Yes (16) Vitamin B12 deficiency Status: Acute Assessment and plan: she gives herself 1000 g of vitamin B12 intramuscularly monthly. Current Visit: Yes - Time Spent With Patient Total time spent with greater than 50% in coordination of care (as documented) at patient's floor/unit and/or counseling patient: IM: PN Subjective General: no anxiety, no depression, no confusion, no fever, no chills HEENT: no sore throat Cardiovascular: no chest pain Respiratory: no cough, no SOB Gastrointestinal: no abdominal pain, no bloating, no nausea, no vomiting, no constipation Musculoskeletal: pain (severe left lower back pain with radiation into the left leg.), weakness (left thigh and foot) Integumentary: other (chronic jaundice) Neurological: limb weakness (left leg), no headache, no numbness IM: PN Objective Exam - I&O/Vital Signs I&O: Intake & Output 06/08/16 06/08/16 06/08/16 05:59 13:59 21:59 Intake Total 150 Output Total 400 Balance -250 Intake: Oral 150 Output: Urine 400 Other: Urine Appearance Clear Urine Color Yellow Stool Characteristics Formed Hard Voiding Method Toilet # Voids 2 Vital Signs: Last Vital Signs Temp 36.9 C 06/08/16 15:00 Pulse 57 L 06/08/16 15:00 Resp 18 06/08/16 15:00 BP 108/62 06/08/16 15:00 Pulse Ox 95 06/08/16 15:00 Oxygen Flow Rate 2 Oxygen Delivery Method Room Air - Constitutional General appearance: Present: average body habitus. Absent: acute distress (at rest) - ENT ENT exam: Present: mucous membranes moist - Respiratory Respiratory exam: Present: clear - Cardiovascular Cardiovascular exam: Present: RRR, systolic murmur (mild and chronic) - GI/Abdominal GI/Abdominal exam: Present: soft. Absent: tenderness - Extremities Exam Extremities exam: Absent: calf tenderness, tenderness - Back Exam Back exam: Present: muscle spasm, paraspinal tenderness (left lower lumbar and upper buttockmoderate to severe) - Neurological Exam Neurological exam: Present: abnormal gait (she still requires 1 person assist to get to the bathroom with her walker.), alert, oriented X3. Absent: reflexes normal (absent left knee jerk) - Psychiatric Psychiatric exam: Present: normal affect, normal mood - Allied Health Notes Allied health notes reviewed: case management, nursing - Lab Labs: Laboratory Last Values WBC 2.2 X 10^3uL (3.9-10.7) L* 06/08/16 01:30 RBC 4.16 X 10^6uL (4.20-6.10) L 06/08/16 01:30 Hgb 9.6 g/dL (12.0-16.0) L 06/08/16 01:30 Hct 30.5 % (36.0-48.0) L 06/08/16 01:30 MCV 73.3 fL (80.0-100.0) L D 06/08/16 01:30 MCH 23.0 pg (29.0-35.0) L 06/08/16 01:30 MCHC 31.4 g/dL (32.0-36.0) L 06/08/16 01:30 RDW 18.2 % (11.5-14.5) H 06/08/16 01:30 Plt Count 64 X 10^3uL (130-440) L 06/08/16 01:30 MPV 7.6 fL (7.4-10.4) 06/08/16 01:30 Total Counted 100 06/08/16 01:30 Neutrophils % Cancelled 06/07/16 10:50 Neutrophils % (Manual) 86 % (54.0-75.0) H 06/08/16 01:30 Band Neuts % (Manual) 8 % (0.0-1.0) H 06/08/16 01:30 Lymphocytes % Cancelled 06/07/16 10:50 Lymphocytes % (Manual) 3 % (20.0-40.0) L 06/08/16 01:30 Monocytes % (Manual) 2 % (2.0-10.0) 06/08/16 01:30 Eosinophils % Cancelled 06/07/16 10:50 Basophils % Cancelled 06/07/16 10:50 Basophils % (Manual) 1 % (0.0-2.0) 06/08/16 01:30 Neutrophils # Cancelled 06/07/16 10:50 Lymphocytes # Cancelled 06/07/16 10:50 Monocytes Cancelled 06/07/16 10:50 Monocytes # Cancelled 06/07/16 10:50 Eosinophils # Cancelled 06/07/16 10:50 Basophils # Cancelled 06/07/16 10:50 Platelet Estimate Decreased 06/08/16 01:30 Hypochromic-Microcytic 20-39% of cells 06/08/16 01:30 Anisocytosis 10-19% of cells 06/08/16 01:30 Microcytosis 40-69% of cells 06/08/16 01:30 Spherocytes Present 06/08/16 01:30 Tear Drop Cells Present 06/08/16 01:30 Ovalocytes Present 06/08/16 01:30 Sodium 140 mmol/L (137-145) 06/08/16 06:05 Potassium 4.4 mmol/L (3.5-5.1) 06/08/16 06:05 Chloride 105 mmol/L (98-107) 06/08/16 06:05 Carbon Dioxide 21 mmol/L (22-30) L 06/08/16 06:05 BUN 41 mg/dL (7-17) H 06/08/16 06:05 Creatinine 1.6 mg/dL (0.5-1.0) H 06/08/16 06:05 GFR Calculation 35 mL/min 06/08/16 06:05 Glucose 166 mg/dL (70-100) H 06/08/16 06:05 Calcium 10.3 mg/dL (8.4-10.2) H 06/08/16 06:05 Total Bilirubin 3.7 mg/dL (0.2-1.3) H 06/08/16 06:05 Direct Bilirubin 1.8 mg/dL (0.0-0.4) H 06/07/16 10:50 AST 63 U/L (14-36) H 06/08/16 06:05 ALT 62 U/L (9-52) H 06/08/16 06:05 Alkaline Phosphatase 513 U/L (38-126) H 06/08/16 06:05 Total Protein 7.1 g/dL (6.3-8.2) 06/08/16 06:05 Albumin 4.3 g/dL (3.5-5.0) 06/08/16 06:05 Albumin/Globulin Ratio 1.5 06/08/16 06:05 Free T4 1.45 ng/dL (0.78-2.19) 06/08/16 14:10 Free T3 pg/mL 1.56 pg/mL (2.77-5.27) L 06/08/16 14:10 Quality Questions - VTE Prophylaxis Assessment VTE Present on Admission?: No Patient at risk for venous thromboembolism?: Yes VTE Risk Level: Low Risk (because of her chronic liver disease. Her INR is chronically mildly elevated at 1.1.) VTE Medical Contraindication: not indicated
[2016-06-08] MEDS: REMOVE PATCH 1 PATCH PATCH TRANSDERM SCH ×2 (19:52→20:16)
[2016-06-08] MEDS: DOCUSATE SODIUM 100 MG CAPSULE PO SCH (20:12)
[2016-06-08] MEDS: hydrOXYzine HCL 10 MG TABLET PO SCH (20:12)
[2016-06-08] MEDS ORDERED: POLYETHYLENE GLYCOL 3350 17 GM POWD.PACK PO SCH (21:00)
[2016-06-08] MEDS ORDERED: hydrOXYzine HCL 10 MG TABLET PO SCH (21:00)
[2016-06-09 05:38] VITALS: BP 98/61; PULSE 56; RESP 20; TEMP 97.6
[2016-06-09 05:39] LABS: A/G RATIO 1.5; BILIRUBIN, TOTAL 2.6 mg/dL (0.2-1.3); CALCIUM 9.6 mg/dL (8.4-10.2); CREATININE 1.7 mg/dL (0.5-1.0); POTASSIUM 4.5 mmol/L (3.5-5.1); TOTAL PROTEIN 6.7 g/dL (6.3-8.2)
[2016-06-09] MEDS: PANTOPRAZOLE 40 MG TABLET PO SCH (05:51)
[2016-06-09] MEDS: REMOVE PATCH 1 PATCH PATCH TRANSDERM SCH (05:52)
[2016-06-09] MEDS ORDERED: LEVOTHYROXINE 100 MCG TABLET PO SCH ×2 (06:30)
[2016-06-09 06:51] VITALS: O2SAT 91
[2016-06-09] MEDS ORDERED: predniSONE 10 MG TABLET PO SCH (09:00)
[2016-06-09] MEDS: FUROSEMIDE 20 MG TABLET PO SCH (09:23)
[2016-06-09] MEDS: BUPROPION 150 MG PO SCH (09:23)
[2016-06-09] MEDS: GABAPENTIN 100 MG CAPSULE PO SCH (09:23)
[2016-06-09] MEDS: SPIRONOLACTONE 25 MG TABLET PO SCH (09:23)
[2016-06-09] MEDS: DOCUSATE SODIUM 100 MG CAPSULE PO SCH (09:23)
[2016-06-09] MEDS: [UNRECOGNIZED DRUG - REMARK] PO SCH (09:24)
[2016-06-09] MEDS: MULTIVITAMINS THERAPEUTIC 1 TABLET PO SCH (09:25)
[2016-06-09] MEDS: [UNRECOGNIZED DRUG - REMARK] PO SCH (09:25)
[2016-06-09] MEDS: LIDOCAINE 5% 1 PATCH PATCH TRANSDERM SCH (09:25)
--- NOTE | 2016-06-09 11:13 | DC SUMMARY: IM Note ---
Discharge Summary: IM/Peds Provider: Date of Admission: 06/07/16 Admitting Provider: BRAULIO BURGESS MD Attending Provider: KIRIT CHRISTIANSON MD Discharging Provider: KIRIT CHRISTIANSON MD Primary Care Provider: Discharge Date: 06/09/16 - Diagnosis (1) Acute left lumbar radiculopathy Status: Acute (2) Absent reflex of lower extremity Status: Acute (3) Left leg weakness Status: Acute (4) Primary sclerosing cholangitis Status: Acute (5) Status post mitral valve replacement with bioprosthetic valve Status: Acute (6) Port catheter in place Status: Acute (7) Cirrhosis Status: Acute (8) Iron deficiency anemia Status: Acute (9) Anemia of chronic disease Status: Acute (10) Chronic kidney disease, stage 3 Status: Acute (11) GERD without esophagitis Status: Acute (12) Esophageal varices Status: Acute (13) Hypoalbuminemia Status: Acute (14) Hypothyroidism Status: Acute (15) Vitamin D deficiency Status: Acute (16) Vitamin B12 deficiency Status: Acute Hospital Course: Her low back pain with left leg radiculopathy (pain and weakness) improved nicely with the help of Lidoderm patches at night, oxycodone 5 mg IR every 6 hours when necessary, gabapentin 100 mg twice a day, and steroids (currently 20 mg of prednisone daily). At discharge her pain level was 2/10 and she was able to ambulate independently with her walker She was able to shower. The good response from an initial systemic steroids makes me hopeful that she would respond longer-term to a transforaminal epidural steroid injection at L3- L4 on the left, where she has a 1.8 cm bulging of her vertebral disc. I spoke with Dr. Barnes about this yesterday, and he is going to try to work her in as soon as possible. In the meantime, she will go home on the medications listed above as well as her usual medications. She will come to [facility] for physical therapy.because she was transfused with 2 units of blood here in the hospital, she will forego her usual weekly albumin injections this week. I will follow-up with her on 06/18 at [facility]. Next , 06/19/15, she will also get both her albumin infusion and her second dose of IV iron. She had her first 200 mg IV iron sucrose dose yesterday and tolerated it fine. She will have a total of 3 doses by 1+ week each. The [facility] liver transplant team is arranging for an an EGD and colonoscopy in [place] to follow-up on a workup for iron deficiency anemia and because of her history of esophageal varices. Her hepatic status remained stable through this hospitalization. - Time Spent with Patient Total time spent providing and/or coordinating discharge services: Discharge - Patient/Caregiver Discharge Instructions Activity Level: as tolerated with walker Diet: regular Follow up: KIRIT CHRISTIANSON MD [Primary Care Provider] - 06/19/16 9:20 am Home Medications: predniSONE [Deltasone*] 5 - 20 mg PO DAILY #11 tablet Lidocaine 5% [Lidoderm 5%*] 1 patch TRANSDERM DAILY #30 patch Gabapentin [Neurontin*] 100 mg PO TID #100 capsule Omeprazole 20 mg PO DAILY #30 cap oxyCODONE HCL IR [Oxy Ir*] 5 mg PO Q4H PRN #30 tablet PRN Reason: PAIN Orders: Outpatient Physical Therapy Eval & Treat Location: Determined By Patient Disposition: HOME, SELF-CARE Discharge Summary Data - Medication History Medication History: Home Medications Albumin Human [Albuminar-25*] 50 gm IV TH 06/07/16 Aripiprazole [Abilify] 5 mg PO DAILY 06/07/16 Biotin 10,000 mcg PO DAILY 06/07/16 Cyanocobalamin [Vitamin B-12*] 1 ml IM [id number] 06/07/16 Furosemide 20 mg PO DAILY 06/07/16 Hydroxyzine HCl 25 mg PO HS 06/07/16 Multivitamins,Therapeutic [Thera Multivitamin*] 1 tab PO DAILY 06/07/16 Ondansetron Odt [Zofran Odt*] 4 mg PO Q6H PRN 06/07/16 Polyethylene Glycol 3350 [Miralax*] 1 packet PO DAILY PRN 06/07/16 Rifaximin [Xifaxan] 550 mg PO BID 06/07/16 Spironolactone [Aldactone*] 50 mg PO DAILY 06/07/16 Triamcinolone 0.1% Cream [Triamcinolone 0.1% Cream*] 1 rhina TP BID PRN 06/07/16 buPROPion HCL [Bupropion HCl Sr] 150 mg PO BID 06/07/16 Docusate Sodium [Colace*] 100 mg PO BID PRN #50 capsule 06/09/16 Gabapentin [Neurontin*] 100 mg PO TID #100 capsule 06/09/16 Levothyroxine [Synthroid*] 50 mcg PO SUTUTHSA@0630 tablet 06/09/16 Levothyroxine [Synthroid*] 100 mcg PO MOWEFR@0630 tablet 06/09/16 Lidocaine 5% [Lidoderm 5%*] 1 patch TRANSDERM DAILY #30 patch 06/09/16 Omeprazole 20 mg PO DAILY #30 cap 06/09/16 oxyCODONE HCL IR [Oxy Ir*] 5 mg PO Q4H PRN #30 tablet 06/09/16 predniSONE [Deltasone*] 5 - 20 mg PO DAILY #11 tablet 06/09/16 Inpatient Medications 06/07/16 12:01 Diphenhydramine [Benadryl Inj] 50 mg IV ONCE PRN 06/07/16 13:28 Lidocaine/Prilocaine Cream [Emla Cream] 1 gm TOPICAL PRN PRN Ondansetron Odt [Zofran Odt] 4 mg PO Q6H PRN Triamcinolone 0.1% Cream 1 rhina TOPICAL BID PRN 06/07/16 13:35 Morphine Sulfate 2 - 4 mg IV Q2H PRN 06/07/16 16:30 Lidocaine 5% [Lidoderm 5%] 1 patch TRANSDERM DAILY 06/07/16 21:00 Remove Patch [Patch Removal] 1 patch TRANSDERM HS Rifaximin [Xifaxan] 550 mg PO BID buPROPion ER BID [Wellbutrin Sr Bid] 150 mg PO BID hydrOXYzine HCL [Atarax] 25 mg PO HS 06/08/16 02:12 LORazepam [Ativan] 0.5 mg IV Q6H PRN 06/08/16 06:30 Pantoprazole [Protonix] 40 mg PO BEFORE BREAKFAST 06/08/16 09:00 Aripiprazole [Abilify] 5 mg PO DAILY Furosemide [Lasix] 20 mg PO DAILY Gabapentin [Neurontin] 100 mg PO BID Multivitamins,Therapeutic [Thera] 1 tab PO DAILY Spironolactone [Aldactone] 50 mg PO DAILY 06/08/16 17:53 oxyCODONE HCL IR [Oxy Ir] 5 mg PO Q4H PRN 06/08/16 21:00 Docusate Sodium [Colace] 100 mg PO BID Polyethylene Glycol 3350 [miraLAX] 17 gm PO HS 06/09/16 06:30 Levothyroxine [Synthroid] 50 mcg PO SUTUTHSA@0630 06/09/16 09:00 predniSONE [Deltasone] 20 mg PO DAILY 06/10/16 06:30 Levothyroxine [Synthroid] 100 mcg PO MOWEFR@0630 06/20/16 09:00 Cyanocobalamin [Vitamin B12] 1,000 mcg IM [id number] Procedures and tests throughout hospitalization: Completed Lab Orders 06/07/16 10:50 BILIRUBIN, DIRECT [CHEM] Stat 06/08/16 01:30 CBC W/ MANUAL DIFFERENTIAL [HEM] Routine 06/08/16 06:05 cmp [COMPREHENSIVE METABOLIC PANEL] [CHEM] AMDRAW 06/08/16 14:10 FREE T3 [CHEM] Routine FREE T4 [CHEM] Routine 06/09/16 05:00 COMPREHENSIVE METABOLIC PANEL [CHEM] AMDRAW Completed Imaging Orders 06/08/16 07:00 MRI [LUMBAR SPINE W/O 27972] [MRI] Routine Pending Orders 06/07/16 11:13 Resuscitation Status Routine 06/07/16 12:01 Diphenhydramine [Benadryl Inj] 50 mg IV ONCE PRN 06/07/16 13:28 Lidocaine/Prilocaine Cream [Emla Cream] 1 gm TOPICAL PRN PRN Ondansetron Odt [Zofran Odt] 4 mg PO Q6H PRN Triamcinolone 0.1% Cream 1 rhina TOPICAL BID PRN 06/07/16 13:35 Morphine Sulfate 2 - 4 mg IV Q2H PRN 06/07/16 14:41 Physical Therapy Eval and Treatment [PT] Routine 06/07/16 16:29 Change from Observation to Inpatient Routine 06/07/16 16:30 Lidocaine 5% [Lidoderm 5%] 1 patch TRANSDERM DAILY 06/07/16 21:00 Remove Patch [Patch Removal] 1 patch TRANSDERM HS Rifaximin [Xifaxan] 550 mg PO BID buPROPion ER BID [Wellbutrin Sr Bid] 150 mg PO BID hydrOXYzine HCL [Atarax] 25 mg PO HS 06/08/16 02:12 LORazepam [Ativan] 0.5 mg IV Q6H PRN 06/08/16 06:30 Pantoprazole [Protonix] 40 mg PO BEFORE BREAKFAST 06/08/16 08:30 ot [Occupation Therapy Eval and Treat] [OT] Routine 06/08/16 09:00 Aripiprazole [Abilify] 5 mg PO DAILY Furosemide [Lasix] 20 mg PO DAILY Gabapentin [Neurontin] 100 mg PO BID Multivitamins,Therapeutic [Thera] 1 tab PO DAILY Spironolactone [Aldactone] 50 mg PO DAILY 06/08/16 13:34 ADD ON LAB TEST [MULTI] Routine 06/08/16 14:10 25 HYDROXY VITAMIN D [CHEM] Routine 06/08/16 17:53 oxyCODONE HCL IR [Oxy Ir] 5 mg PO Q4H PRN 06/08/16 21:00 Docusate Sodium [Colace] 100 mg PO BID Polyethylene Glycol 3350 [miraLAX] 17 gm PO HS 06/09/16 06:30 Levothyroxine [Synthroid] 50 mcg PO SUTUTHSA@62906/09/16 09:00 predniSONE [Deltasone] 20 mg PO DAILY 06/09/16 13:00 Discharge ONCE 06/10/16 06:30 Levothyroxine [Synthroid] 100 mcg PO MOWEFR@62906/20/16 09:00 Cyanocobalamin [Vitamin B12] 1,000 mcg IM [id number] Labs on day of discharge: Labs from last 24 hours 06/09/16 06/08/16 06/08/16 05:00 14:10 14:10 Sodium 136 L Potassium 4.5 Chloride 103 Carbon Dioxide 23 BUN 52 H Creatinine 1.7 H GFR Calculation 33 Glucose 81 Calcium 9.6 Total Bilirubin 2.6 H AST 66 H ALT 66 H Alkaline Phosphatase 464 H Total Protein 6.7 Albumin 4.0 Albumin/Globulin Ratio 1.5 Total 25-OH Vitamin D Pending Free T4 1.45 Free T3 pg/mL 1.56 L IM: Discharge Physical Exam - I&O/Vital Signs I&O: Intake & Output 06/08/16 06/09/16 06/09/16 21:59 05:59 13:59 Intake Total 500 690 Output Total 1440 425 Balance -940 265 Intake: Oral 500 690 Output: Urine 1440 425 Other: Urine Appearance Clear Clear Clear Sediment Sediment Sediment Urine Color Pale Yellow Yellow Yellow Stool Characteristics Formed Hard Voiding Method Toilet Toilet Toilet # Bowel Movements 0 Vital Signs: Last Vital Signs Temp 36.4 C 06/09/16 05:37 Pulse 56 L 06/09/16 05:37 Resp 20 06/09/16 08:56 BP 98/61 06/09/16 05:37 Pulse Ox 91 06/09/16 08:56 Oxygen Flow Rate 2 Oxygen Delivery Method Room Air - Constitutional General appearance: Present: average body habitus. Absent: acute distress (at rest) - ENT ENT exam: Present: mucous membranes moist - Respiratory Respiratory exam: Present: clear - Cardiovascular Cardiovascular exam: Present: RRR, systolic murmur (mild and chronic) - GI/Abdominal GI/Abdominal exam: Present: soft. Absent: tenderness - Extremities Exam Extremities exam: Absent: calf tenderness, tenderness - Back Exam Back exam: Present: muscle spasm, paraspinal tenderness (mild, left) - Neurological Exam Neurological exam: Present: abnormal gait (she still requires a walker. 4/5 strength of L quads.), alert, oriented X3. Absent: reflexes normal (absent left knee jerk) - Psychiatric Psychiatric exam: Present: normal affect, normal mood - Allied Health Notes Allied health notes reviewed: case management, nursing Allied health notes reviewed: case management, nursing
[2016-06-10] MEDS ORDERED: LEVOTHYROXINE 50 MCG TABLET PO SCH ×2 (06:30)
[2016-06-20] MEDS ORDERED: CYANOCOBALAMIN 1,000 MCG/ML VIAL IM SCH (09:00)
== END 2016-06-09 12:11 | disposition home or self-care (01) | DRG 552 ==
LOC: ER 10:15 → IN 11:51 → OBSVTOIN 11:51
PROVIDERS: ADMIT Family Medicine; ATTEND Family Medicine
DX: M51.17 Intervertebral disc disorders with radiculopathy, lumbosacral region (principal); M54.42 Lumbago with sciatica, left side; N18.3 Chronic kidney disease, stage 3 (moderate); D63.1 Anemia in chronic kidney disease; K74.3 Primary biliary cirrhosis; Z95.2 Presence of prosthetic heart valve; J45.909 Unspecified asthma, uncomplicated; I25.10 Atherosclerotic heart disease of native coronary artery without angina pectoris; K21.9 Gastro-esophageal reflux disease without esophagitis; I85.00 Esophageal varices without bleeding; E03.9 Hypothyroidism, unspecified; E88.09 Other disorders of plasma-protein metabolism, not elsewhere classified; E55.9 Vitamin D deficiency, unspecified; E53.8 Deficiency of other specified B group vitamins; Z79.899 Other long term (current) drug therapy
CPT/HCPCS: 36415; 36430; 72148; 80053; 82248; 82306; 84439; 84481; 85007; 85027; 86920; 96361; 96374; 96375; 99285; A0425; A0429; J1170; J1200; J1642; J1756; J2060; J2270; J2930; J7040; J7050; J7512; P9040-BL

== ENCOUNTER 2016-07-06 16:35 | Emergency (ER) | payer BC ==
[2016-07-06] MEDS ORDERED: PANTOPRAZOLE 40 MG VIAL IV ONE (17:37)
[2016-07-06] MEDS ORDERED: NORMAL SALINE MINI-BAG+ 100 ML IV ONE (17:41)
[2016-07-06 17:45] LABS: INR 1.2
[2016-07-06 17:48] LABS: ALKALINE PHOSPHATASE 491 U/L (38-126); ALT 60 U/L (9-52); AST 64 U/L (14-36); BILIRUBIN, DIRECT 1.8 mg/dL (0.0-0.4); BILIRUBIN, TOTAL 2.8 mg/dL (0.2-1.3); BLOOD UREA NITROGEN 31 mg/dL (7-17); CALCIUM 9.2 mg/dL (8.4-10.2); CHLORIDE 110 mmol/L (98-107); CREATININE 1.4 mg/dL (0.5-1.0); EST GLOMERULAR FILTRATION RATE 41 mL/min; GLUCOSE 80 mg/dL (70-100); LIPASE 130 U/L (23-300); POTASSIUM 4.6 mmol/L (3.5-5.1); SODIUM 141 mmol/L (137-145); TOTAL PROTEIN 6.4 g/dL (6.3-8.2)
[2016-07-06 18:16] LABS: PARTIAL THROMBOPLASTIN TIME 37 sec (24-38)
[2016-07-06 18:20] LABS: ABO GROUP TYPE A; ANTIBODY SCREEN NEGATIVE; RH TYPE POSITIVE
[2016-07-06 18:27] LABS: HEMATOCRIT 24.6 % (36.0-48.0); HEMOGLOBIN 8.3 g/dL (12.0-16.0); MEAN CELL VOLUME 75.4 fL (80.0-100.0); MEAN CORPUS. HGB CONCENTRATION 33.5 g/dL (32.0-36.0); MEAN CORPUSCULAR HEMOGLOBIN 25.3 pg (29.0-35.0); MEAN PLATELET VOLUME 7.6 fL (7.4-10.4); PLATELET COUNT 74 X 10^3uL (130-440); RED BLOOD COUNT 3.27 X 10^6uL (4.20-6.10); RED CELL DISTRIBUTION WIDTH 26.4 % (11.5-14.5); WHITE BLOOD COUNT 3.3 X 10^3uL (3.9-10.7)
[2016-07-06 18:28] LABS: BAND% (Manual) 22 % (0.0-1.0); EOSINOPHIL % (Manual) 2 % (0.0-6.0); LYMPHOCYTE % (Manual) 10 % (20.0-40.0); MONOCYTE % (Manual) 2 % (2.0-10.0); NEUTROPHIL % (Manual) 64 % (54.0-75.0)
[2016-07-06 18:29] LABS: HELMET CELLS PRESENT; OVALOCYTES PRESENT; PLATELET ESTIMATE DECREASED
--- NOTE | 2016-07-06 18:50 | ER NURSING DOCUMENTATION ---
Nurse's Notes [facility] [place] Name:Aydee Lund Age:56 yrs Sex:Female :1960 Arrival Date:07/06/2016 Time:16:35 Bed3 Private MD:Narciso Shaw Diagnosis:GI Bleeding Presentation: 07/06 16:46 Presenting complaint: Patient states: vomiting x4 today and pt. noticed blood in her sc1 vomitus. Pt. also states she has rectal bleeding which she has had for 1-2 years and is having a colonoscopy and EGD tomorrow. Transition of care: Home. 16:46 Method Of Arrival: Private Vehicle sc1 16:46 Acuity: DEBBY 2 sc1 Triage Assessment: 17:13 General: Appears in no apparent distress, well developed, well nourished, well groomed, sc1 Behavior is cooperative, pleasant. Pain: Denies pain. GI: Reports vomiting. Historical: - Allergies: Tetanus Toxoid Adsorbed; Carrot; tetatnus antagin; Rifampin; - Home Meds: 1. aripiprazole oral 2. Wellbutrin Oral 3. biotin oral 4. cyanocobalamin (vitamin B-12) oral 5. Hydroxyzine Oral 6. Lasix Oral 7. Enulose oral 8. EMLA Topical 9. levothyroxine oral 10. multivitamin with minerals oral 11. Prilosec Oral 12. GlycoLax oral 13. Zofran Oral 14. Aldactone Oral 15. Xifaxan oral 16. tramadol Oral 17. Triamcinolone Acetonide Topical - PMHx: primary sclerosing colongitis; evie's thyroiditis; polycystic ovarian syndrome; low functioning kidneys; ASTHMA; CIRRHOSIS; Abdominal Pain, Right Upper Quadrant (June 06, 2016); Sciatica (June 07, 2016); Difficulty Walking (June 07, 2016); Pain- Acute, other (June 07, 2016); - PSHx: liver biopsies; port; - Ebola Screening: : Patient negative for fever greater than or equal to 101.5 degrees Fahrenheit, and additional compatible Ebola Virus Disease symptoms. Patient denies exposure to infectious person. Patient denies travel to an Ebola-affected area in the 21 days before illness onset. No symptoms or risks identified at this time. . - Immunization history: Flu Vaccine < 1 year. - Social history: Smoking status: unknown if patient ever smoked tobacco. Patient/guardian denies using alcohol, street drugs, IV drugs, marijuana. Screenin:14 Infectious Disease Risk None. Abuse screen: Denies threats or abuse. Nutritional sc1 screening: No deficits noted. Assessment: 17:55 Derm: Skin is intact, Skin is dry, Skin is jaundiced, Skin temperature is warm. mt1 Vital Signs: 16:40 BP 119 / 60; Pulse 52; Resp 16; Temp 97.7; Pulse Ox 100% on R/A; sc1 17:18 BP 106 / 64; Pulse 51; Resp 16; Pulse Ox 100% on R/A; sc1 17:45 BP 108 / 47; Pulse 52; Resp 16; Pulse Ox 98% on R/A; sc1 18:06 BP 125 / 49; Pulse 58; Resp 16; Pulse Ox 98% on R/A; sc1 ED Course: 16:36 Patient arrived in ED. angeli 16:37 Narciso Shaw MD is Private Physician. angeli 16:37 Walter Baker MD is Attending Physician. sc 16:40 Notified ED Physician of patient's arrival and chief complaint. Dr. Baker notified. sc1 16:46 Devorah Centeno, RN is Primary Nurse. mt1 16:48 Triage completed. mt1 17:15 Accessed Medi-Port using accessed w/ # 20 Domingo needle, sterile technique, per [facility] protocol. Clean & dry. Dressing intact. Flushes easily. 18:25 Valuables sent with patient transfer to another facility. mt1 Administered Medications: 16:30 Drug: NS 0.9% 1000 ml; Route: IV; Rate: bolus; Site: right subclavian; Delivery: sc1 [place] Tubing; 18:48 Follow up: IV Status: Infusing continued upon transfer; IV Intake: 500ml sc1 17:30 Drug: Protonix 8 mg/hr; Route: IV; Rate: calculated rate; Site: right subclavian; sc1 Delivery: Pump; 18:48 Follow up: IV Status: Completed infusion sc1 Intake: 18:48 IV: 500ml; Total: 500ml. mt1 Outcome: 17:44 ER care complete, transfer ordered by . mt 18:24 Transferred: Patient will be transferred to: Other [place] Facility Acceptance Time: mt1 July 06, 2016 at 18:00 Patient's face sheet was faxed to accepting facility. Face Sheet included patient's name, address, age, gender, contact information and insurance information. Patient will be transported by: [facility] ground. Nurse and Physician Charting and Notes were sent to Accepting Facility. All tests and/or procedures with results, if applicable, were sent to accepting facility. 18:25 Condition: stable sc1 18:25 Instructed on need for transfer 18:49 Patient left the ED. sc1 Signatures: Devorah Centeno RN RN sc1 Walter Baker MD MD sc Elsa Rueda, Reg Reg angeli
--- NOTE | 2016-07-06 18:50 | ER PHYSICIAN DOCUMENTATION ---
Physician Documentation [facility] Name:Aydee Lund Age:56 yrs Sex:Female :1960 Arrival Date:07/06/2016 Time:16:35 Bed3 Private MD:Narciso Shaw ED, Scott Disposition: 07/06/16 17:44 Transfer ordered to Other Acute Care Facility. Diagnosis is GI Bleeding. - Reason for transfer: Higher level of care. - Accepting physician is Dr. Paniagua. - Condition is Serious. - Problem is an acute exacerbation. - Symptoms are unchanged. COBRA Form completed? Yes Transfer - Mode of Transportation Ambulance HPI: 07/06 17:26 This 56 yrs old Female presents to ER via Private Vehicle with complaints of sc Vomiting. 17:27 The patient presents to the emergency department vomiting blood, a moderate amount, 3 sc times since symptom onset, with rectal bleeding, a small amount, bright red blood with bowel movement, dark red blood with bowel movement melena, with multiple such episodes. Onset: The symptom(s)/episode began/occurred today. Abdominal pain: none is appreciated. Modifying factors: The symptoms are alleviated by nothing. Associated signs and symptoms: Pertinent positives: dizziness when standing, vomiting. Severity of symptoms: At their worst the symptoms were moderate. The patient has experienced similar episodes in the past, a few times, EGD each year, rectal bleeding x 2 months so egd and colonoscopy already scheduled for tomorrow. The patient has been recently seen by a physician: rn concurrent review. Historical: - Allergies: Tetanus Toxoid Adsorbed; Carrot; tetatnus antagin; Rifampin; - Home Meds: 1. aripiprazole oral 2. Wellbutrin Oral 3. biotin oral 4. cyanocobalamin (vitamin B-12) oral 5. Hydroxyzine Oral 6. Lasix Oral 7. Enulose oral 8. EMLA Topical 9. levothyroxine oral 10. multivitamin with minerals oral 11. Prilosec Oral 12. GlycoLax oral 13. Zofran Oral 14. Aldactone Oral 15. Xifaxan oral 16. tramadol Oral 17. Triamcinolone Acetonide Topical - PMHx: primary sclerosing colongitis; evie's thyroiditis; polycystic ovarian syndrome; low functioning kidneys; ASTHMA; CIRRHOSIS; Abdominal Pain, Right Upper Quadrant (June 06, 2016); Sciatica (June 07, 2016); Difficulty Walking (June 07, 2016); Pain- Acute, other (June 07, 2016); - PSHx: liver biopsies; port; - Ebola Screening: : Patient negative for fever greater than or equal to 101.5 degrees Fahrenheit, and additional compatible Ebola Virus Disease symptoms. Patient denies exposure to infectious person. Patient denies travel to an Ebola-affected area in the 21 days before illness onset. No symptoms or risks identified at this time. . - Immunization history: Flu Vaccine < 1 year. - Social history: Smoking status: unknown if patient ever smoked tobacco. Patient/guardian denies using alcohol, street drugs, IV drugs, marijuana. ROS: 17:37 Constitutional: Negative for fever, chills, and weight loss. sc Eyes: Negative for injury, pain, redness, and discharge. ENT: Negative for injury, pain, and discharge. Neck: Negative for injury, pain, and swelling. Cardiovascular: Negative for chest pain, palpitations, and edema. Respiratory: Negative for shortness of breath, cough, wheezing, and pleuritic chest pain. Back: Negative for injury and pain. MS/Extremity: Negative for injury and deformity. Skin: Negative for injury, rash, and discoloration. 17:37 Neuro: Negative for headache, weakness, numbness, tingling, and seizure. sc 17:37 Abdomen/GI: Positive for vomiting, hematemesis, rectal bleeding. Exam: Constitutional: This is a well developed, well nourished patient who is awake, alert, and in no acute distress. Head/Face: Normocephalic, atraumatic. Eyes: Pupils equal round and reactive to light, extra-ocular motions intact. Lids and lashes normal. Conjunctiva and sclera are non-icteric and not injected. Cornea within normal limits. Periorbital areas with no swelling, redness, or edema. ENT: Nares patent. No nasal discharge, no septal abnormalities noted. Tympanic membranes are normal and external auditory canals are clear. Oropharynx with no redness, swelling, or masses, exudates, or evidence of obstruction, uvula midline. Mucous membranes moist. Neck: Trachea midline, no thyromegaly or masses palpated, and no cervical lymphadenopathy. Supple, full range of motion without nuchal rigidity, or vertebral point tenderness. No meningismus. Chest/axilla: Normal chest wall appearance and motion. Nontender with no deformity. No lesions are appreciated. Cardiovascular: Regular rate and rhythm with a normal S1 and S2. No gallops, murmurs, or rubs. Normal PMI, no JVD. No pulse deficits. Respiratory: Lungs have equal breath sounds bilaterally, clear to auscultation and percussion. No rales, rhonchi or wheezes noted. No increased work of breathing, no retractions or nasal flaring. Back: No spinal tenderness. No costovertebral tenderness. Full range of motion. 17:38 Neuro: Awake and alert, GCS 15, oriented to person, place, time, and situation. pa Cranial nerves II-XII grossly intact. Motor strength 5/5 in all extremities. Sensory grossly intact. Cerebellar exam normal. Normal gait. 17:38 Abdomen/GI: Bowel sounds: active, Palpation: abdomen is soft and non-tender, Rectal exam: Stool: guaiac positive, Liver: is firm, is enlarged. 17:38 Skin: Appearance: Color: jaundiced, pale. Vital Signs: 16:40 BP 119 / 60; Pulse 52; Resp 16; Temp 97.7; Pulse Ox 100% on R/A; pa1 17:18 BP 106 / 64; Pulse 51; Resp 16; Pulse Ox 100% on R/A; pa1 17:45 BP 108 / 47; Pulse 52; Resp 16; Pulse Ox 98% on R/A; pa1 18:06 BP 125 / 49; Pulse 58; Resp 16; Pulse Ox 98% on R/A; pa1 MDM: 16:37 Patient medically screened. pa 17:39 Differential diagnosis: hemorrhagic shock, varices. Data reviewed: vital signs, nurses pa notes, old medical records, lab test result(s), and as a result, I will *Transfer Patient. Counseling: I had a detailed discussion with the patient and/or guardian regarding: the historical points, exam findings, and any diagnostic results supporting the discharge/admit diagnosis, lab results, the need to transfer to another facility. Physician consultation: Lyn Daley/Siva was called at 17:40, was contacted at 17:40, regarding admission, to the ICU. 18:01 ED course: No further hematemesis in ER, vitals stable, per discussion with pa Inspector Aligning and ICU attending will transfuse pt if HCT less than 24, otherwise PPI and transfer.. 07/06 17:58 Order name: BASIC METABOLIC PANEL [facility] 07/06 17:58 Order name: HEPATIC PANEL [facility] 07/06 17:58 Order name: LIPASE [facility] 07/06 18:18 Order name: PROTIME/INR [facility] 07/06 18:18 Order name: PARTIAL THROMBOPLASTIN TIME [facility] 07/06 18:21 Order name: ABO GROUP [facility] 07/06 18:21 Order name: RH TYPE [facility] 07/06 18:21 Order name: ANTIBODY SCREEN [facility] 07/06 18:28 Order name: CBC WITHOUT A DIFFERENTIAL [facility] 07/06 18:30 Order name: MANUAL DIFFERENTIAL [facility] 07/06 16:57 Order name: Continuous Cardiac Monitoring; Complete Time: 17:48 pa 07/06 16:57 Order name: Hemocult Stool pa 07/06 16:57 Order name: I & O; Complete Time: 17:48 pa 07/06 16:57 Order name: IV large bore X 2 pa 07/06 16:57 Order name: NPO; Complete Time: 17:48 pa 07/06 16:57 Order name: Oxygen; Complete Time: 17:48 pa 07/06 16:57 Order name: Pulse Ox Continuous; Complete Time: 17:48 pa Dispensed Medications: 16:30 Drug: NS 0.9% 1000 ml; Route: IV; Rate: bolus; Site: right subclavian; Delivery: sc1 [place] Tubing; 18:48 Follow up: IV Status: Infusing continued upon transfer; IV Intake: 500ml [facility] 17:30 Drug: Protonix 8 mg/hr; Route: IV; Rate: calculated rate; Site: right subclavian; pa1 Delivery: Pump; 18:48 Follow up: IV Status: Completed infusion [facility] Signatures: Devorah Centeno RN RN [facility] Walter Baker MD MD pa
== END 2016-07-06 18:49 | disposition short-term general hospital (02) ==
LOC: ER 16:35
DX: K92.0 Hematemesis (principal); K92.1 Melena; R42 Dizziness and giddiness; R16.0 Hepatomegaly, not elsewhere classified; Z79.899 Other long term (current) drug therapy; Z74.3 Need for continuous supervision
CPT/HCPCS: 80048; 80076; 83690; 85007; 85027; 85610; 85730; 86850; 86900; 86901; 96361; 96365; 99285; A0425; A0427

== ENCOUNTER 2016-07-19 11:21 | Emergency (ER) | payer BC ==
[2016-07-19] MEDS ORDERED: PANTOPRAZOLE 40 MG VIAL IV ONE ×2 (12:31→12:39)
[2016-07-19] MEDS ORDERED: NORMAL SALINE 100 ML IV ONE ×2 (12:32→12:39)
[2016-07-19] MEDS ORDERED: WATER FOR INJECTION ONE (12:32)
[2016-07-19] MEDS ORDERED: ONDANSETRON HCL 4 MG/2 ML VIAL ONE (12:41)
[2016-07-19 12:43] LABS: ALBUMIN 4.3 g/dL (3.5-5.0); ALKALINE PHOSPHATASE 580 U/L (38-126); ALT 69 U/L (9-52); AST 73 U/L (14-36); BILIRUBIN, DIRECT 2.1 mg/dL (0.0-0.4); BILIRUBIN, TOTAL 3.2 mg/dL (0.2-1.3); BLOOD UREA NITROGEN 29 mg/dL (7-17); CALCIUM 9.5 mg/dL (8.4-10.2); CHLORIDE 109 mmol/L (98-107); CREATININE 1.3 mg/dL (0.5-1.0); EST GLOMERULAR FILTRATION RATE 45 mL/min; GLUCOSE 84 mg/dL (70-100); POTASSIUM 4.3 mmol/L (3.5-5.1); SODIUM 141 mmol/L (137-145); TOTAL PROTEIN 6.9 g/dL (6.3-8.2)
[2016-07-19 13:02] LABS: INR 1.2; PARTIAL THROMBOPLASTIN TIME 43 sec (24-38)
[2016-07-19 13:03] LABS: HEMATOCRIT 26.6 % (36.0-48.0); HEMOGLOBIN 8.8 g/dL (12.0-16.0); MEAN CELL VOLUME 80.1 fL (80.0-100.0); MEAN CORPUSCULAR HEMOGLOBIN 26.4 pg (29.0-35.0); PLATELET COUNT 80 X 10^3uL (130-440); RED BLOOD COUNT 3.32 X 10^6uL (4.20-6.10); RED CELL DISTRIBUTION WIDTH 23.6 % (11.5-14.5); WHITE BLOOD COUNT 2.6 X 10^3uL (3.9-10.7)
[2016-07-19 13:04] LABS: BAND% (Manual) 8 % (0.0-1.0); EOSINOPHIL % (Manual) 8 % (0.0-6.0); LYMPHOCYTE % (Manual) 10 % (20.0-40.0); MONOCYTE % (Manual) 10 % (2.0-10.0); NEUTROPHIL % (Manual) 64 % (54.0-75.0); PLATELET ESTIMATE DECREASED
[2016-07-19 13:05] LABS: HELMET CELLS PRESENT; OVALOCYTES PRESENT
--- NOTE | 2016-07-19 15:12 | ER PHYSICIAN DOCUMENTATION ---
Physician Documentation [facility] Name:Aydee Lund Age:56 yrs Sex:Female :1960 Arrival Date:07/19/2016 Time:11:21 Bed4 Private MD:Narciso Shaw ED, John Disposition: 07/19/16 14:17 Transfer ordered to Other Acute Care Facility. Diagnosis is Esophageal Varices With Bleeding. - Reason for transfer: Specialty. - Accepting physician is Dr. Casiano. - Condition is Serious. - Problem is an ongoing problem. - Symptoms have worsened. COBRA Form completed? Yes Transfer - Mode of Transportation Ambulance HPI: 07/19 12:13 This 56 yrs old Female presents to ER via Private Vehicle with complaints of jm Rectal Bleeding. 12:13 The patient presents to the emergency department with bleeding from the rectum/anus, jm that is moderate. Onset: The symptom(s)/episode began/occurred yesterday, and became persistent today. Context: the patient known esophageal varices. . Modifying factors: The symptoms are aggravated by nothing. Associate signs and symptoms: Pertinent positives: weakness. The patient has experienced a previous episode, approximately 2 weeks ago, and the symptoms today are exactly the same. Pt was admitted to [facility] where she underwent EGD and had 7 varices banded. She received blood and was feeling great, and DC'd on day 5. She's been home for a week. Yesterday she felt a clot pass and had multiple more pass last night. 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 She called Hepatology at [facility] and they wanted her seen here and expect transfer. . Historical: - Allergies: Tetanus Toxoid Adsorbed; Carrot; tetatnus antagin; Rifampin; - Home Meds: 1. aripiprazole oral 2. Wellbutrin Oral 3. biotin oral 4. cyanocobalamin (vitamin B-12) oral 5. Hydroxyzine Oral 6. Lasix Oral 7. Enulose oral 8. EMLA Topical 9. levothyroxine oral 10. multivitamin with minerals oral 11. Prilosec Oral 12. GlycoLax oral 13. Zofran Oral 14. Aldactone Oral 15. Xifaxan oral 16. tramadol Oral 17. Triamcinolone Acetonide Topical - PMHx: primary sclerosing colongitis; evie's thyroiditis; polycystic ovarian syndrome; low functioning kidneys; ASTHMA; CIRRHOSIS; Abdominal Pain, Right Upper Quadrant (June 06, 2016); Sciatica (June 07, 2016); Difficulty Walking (June 07, 2016); Pain- Acute, other (June 07, 2016); GI Bleeding (July 06, 2016); - PSHx: liver biopsies; port; - Tetanus: unknown. - Ebola Screening: : Patient negative for fever greater than or equal to 101.5 degrees Fahrenheit, and additional compatible Ebola Virus Disease symptoms. Patient denies exposure to infectious person. Patient denies travel to an Ebola-affected area in the 21 days before illness onset. No symptoms or risks identified at this time. . - Immunization history: Unable to Obtain. - Social history: Smoking status: Patient states was never smoker of tobacco. ROS: 12:16 Constitutional: Positive for fatigue, malaise. jm 12:16 Abdomen/GI: Positive for rectal bleeding, Negative for abdominal pain, nausea, vomiting, diarrhea. 12:16 Skin: Positive for pallor. 12:16 Neuro: Positive for weakness, Negative for dizziness, syncope, near syncope. 12:16 Psych: Negative for drug dependence, alcohol dependence. 12:16 Hematologic/Lymphatic: Positive for anemia. 12:16 All other systems are negative. 12:16 All other systems are negative. Exam: 12:17 Constitutional: The patient appears alert, awake, pale. jm 12:17 Eyes: Periorbital structures: appear normal, Conjunctiva: pale. 12:17 ENT: Mouth: Oral mucosa: normal, Voice: is normal. 12:17 Cardiovascular: Rate: normal, Rhythm: 12:17 Respiratory: the patient does not display signs of respiratory distress, Breath sounds: are normal. 12:17 Abdomen/GI: Palpation: abdomen is soft and non-tender, Rectal exam: the exam is deferred. 12:17 Back: pain, is absent, CVA tenderness, is absent. 12:17 Musculoskeletal/extremity: ROM: intact in all extremities, Pulses: are normal with no appreciated deficits. 12:17 Skin: Appearance: Color: dusky, pale, Turgor: is excellent. 12:17 Neuro: Mentation: is normal, Memory: is normal. 12:17 Psych: Behavior/mood is pleasant, cooperative, Affect is calm. Vital Signs: 11:28 BP 104 / 44; Pulse 59; Resp 18; Temp 98.3; Pulse Ox 95% on R/A; Weight 62.14 kg; Height rs 5 ft. 7 in. (170.18 cm); Pain 0/10; 12:12 BP 110 / 60; Pulse 50; Resp 17; Pulse Ox 95% on R/A; Pain 0/10; rs 13:00 BP 111 / 55; Pulse 49; Resp 18; Pulse Ox 95% on R/A; Pain 0/10; rs 11:28 Body Mass Index 21.46 (62.14 kg, 170.18 cm) rs Procedures: 14:14 Peripheral line: by aseptic technique a peripheral line was placed in the right external jugular vein. MDM: 11:25 Patient medically screened. 12:18 Differential diagnosis: known variceal bleed. Data reviewed: vital signs, nurses notes, old medical records, lab test result(s), and as a result, I will *Transfer Patient. Counseling: I had a detailed discussion with the patient and/or guardian regarding: the historical points, exam findings, and any diagnostic results supporting the discharge/admit diagnosis, lab results, the need to transfer to another facility, for higher level of care, [facility] does not immediately have the required specialist. 13:48 Physician consultation: Kwadwo Casiano was called at 13:30, was contacted at 13:48, regarding patient's condition, accepted transfer. . ED course: Pt's H&H is stable for now as are VS, but I feel pt will need blood for transport. Dr. Casiano, ICU doctor at [facility], agrees and would like EJ IV. This was done w/o issue. Pt given blood and transported down. . 07/19 13:04 Order name: CBC WITHOUT A DIFFERENTIAL; Complete Time: 13:10 EDMS 07/19 13:05 Order name: MANUAL DIFFERENTIAL; Complete Time: 13:10 EDMS 07/19 13:06 Order name: BASIC METABOLIC PANEL; Complete Time: 13:10 EDMS 07/19 13:06 Order name: HEPATIC PANEL; Complete Time: 13:10 EDMS 07/19 13:07 Order name: PROTIME/INR; Complete Time: 13:10 EDMS 07/19 13:07 Order name: PARTIAL THROMBOPLASTIN TIME; Complete Time: 13:10 [facility] 07/19 16:13 Order name: ABO GROUP [facility] 07/19 16:13 Order name: RH TYPE [facility] 07/19 16:13 Order name: ANTIBODY SCREEN [facility] 07/19 16:13 Order name: CROSSMATCH IMMEDIATE SPIN [facility] 07/19 16:14 Order name: CROSSMATCH IMMEDIATE SPIN [facility] 07/19 11:26 Order name: Continuous Cardiac Monitoring; Complete Time: 12:46 07/19 11:26 Order name: I & O; Complete Time: 12:46 07/19 11:26 Order name: NPO; Complete Time: 12:46 07/19 11:26 Order name: Oxygen; Complete Time: 12:46 07/19 11:26 Order name: Pulse Ox Continuous; Complete Time: 12:46 Dispensed Medications: Completed: Protonix 80 mg IVPB once 12:25 Drug: Zofran 4 mg; Route: IVP; Rate: 2 mg/min; Infused Over: 2 mins; Site: right rs subclavian; 14:38 Follow up: Response: No adverse reaction rs 12:37 Drug: Protonix 8 mg/hr; Volume: 100 ml; Route: IV; Rate: calculated rate; Infused Over: rs 10 hrs; Site: right subclavian; Delivery: IVPB Tubing; 14:38 Follow up: Response: No adverse reaction; IV Intake: 10ml rs 12:40 Drug: Protonix 80 mg; Volume: 100 ml; Route: IVPB; Rate: 400 ml/hr; Infused Over: 15 rs mins; Site: right subclavian; Delivery: IVPB Tubing; 12:50 Follow up: IV Status: Completed infusion; IV Intake: 100ml rs 13:23 Follow up: Response: No adverse reaction rs Critical care time excluding procedures: 14:16 Critical care time: Bedside Care: 90 minutes, Consultation: 20 minutes. Total time: 110 jm minutes Signatures: Sulema Pack RN RN rs Campbell, Sandy, RN RN sc1 Erick Vera MD MD
--- NOTE | 2016-07-19 15:12 | ER NURSING DOCUMENTATION ---
Nurse's Notes [facility] Name:Aydee Lund Age:56 yrs Sex:Female :1960 Arrival Date:07/19/2016 Time:11:21 Bed4 Private MD:Narciso Shaw Diagnosis:Esophageal Varices With Bleeding Presentation: 07/19 11:29 Presenting complaint: Patient states: Rectal bleeding. Recent hx of esophageal varices rs after last ER visit here (and transfer to [facility]). She was there for 5 days, transfused twice, given albumin, and felt very well. Two days two days ago she started belching, which is a sx that she had with her previous bleed. Yesterday she was passing soha blood and has several golf ball sized black clots. Denies CP, SOB, or lightheadedness. Transition of care: Home. Notified ED Physician of patient's arrival and CC Chuy Godfrey notified. 11:29 Acuity: DEBBY 2 rs 11:29 Method Of Arrival: Private Vehicle rs Triage Assessment: 11:30 General: Appears in no apparent distress, comfortable, slender, well developed, well rs groomed, Behavior is cooperative, pleasant. Pain: Denies pain. Neuro: No deficits noted. Level of Consciousness is awake, alert, Oriented to person, place, time, event. Cardiovascular: No deficits noted. Capillary refill < 3 seconds Pulses are 3+ in left radial artery. Respiratory: No deficits noted. Respiratory effort is even, unlabored, Respiratory pattern is regular, symmetrical, Breath sounds are clear bilaterally. GI: Abdomen is flat, non- distended Bowel sounds present X 4 quads. Abd is soft and non tender Reports anorexia, Denies diarrhea, nausea, vomiting. Derm: Skin is intact, Skin is pale, Skin temperature is warm. Historical: - Allergies: Tetanus Toxoid Adsorbed; Carrot; tetatnus antagin; Rifampin; - Home Meds: 1. aripiprazole oral 2. Wellbutrin Oral 3. biotin oral 4. cyanocobalamin (vitamin B-12) oral 5. Hydroxyzine Oral 6. Lasix Oral 7. Enulose oral 8. EMLA Topical 9. levothyroxine oral 10. multivitamin with minerals oral 11. Prilosec Oral 12. GlycoLax oral 13. Zofran Oral 14. Aldactone Oral 15. Xifaxan oral 16. tramadol Oral 17. Triamcinolone Acetonide Topical - PMHx: primary sclerosing colongitis; evie's thyroiditis; polycystic ovarian syndrome; low functioning kidneys; ASTHMA; CIRRHOSIS; Abdominal Pain, Right Upper Quadrant (June 06, 2016); Sciatica (June 07, 2016); Difficulty Walking (June 07, 2016); Pain- Acute, other (June 07, 2016); GI Bleeding (July 06, 2016); - PSHx: liver biopsies; port; - Tetanus: unknown. - Ebola Screening: : Patient negative for fever greater than or equal to 101.5 degrees Fahrenheit, and additional compatible Ebola Virus Disease symptoms. Patient denies exposure to infectious person. Patient denies travel to an Ebola-affected area in the 21 days before illness onset. No symptoms or risks identified at this time. . - Immunization history: Unable to Obtain. - Social history: Smoking status: Patient states was never smoker of tobacco. Screenin:40 Infectious Disease Risk None. Abuse screen: Denies threats or abuse. Nutritional rs screening: No deficits noted. Assessment: 14:39 Reassessment: No changes from previously documented assessment. rs Vital Signs: 11:28 BP 104 / 44; Pulse 59; Resp 18; Temp 98.3; Pulse Ox 95% on R/A; Weight 62.14 kg; Height rs 5 ft. 7 in. (170.18 cm); Pain 0/10; 12:12 BP 110 / 60; Pulse 50; Resp 17; Pulse Ox 95% on R/A; Pain 0/10; rs 13:00 BP 111 / 55; Pulse 49; Resp 18; Pulse Ox 95% on R/A; Pain 0/10; rs 11:28 Body Mass Index 21.46 (62.14 kg, 170.18 cm) rs ED Course: 11:23 Patient arrived in ED. jt 11:23 Narciso Shaw MD is Private Physician. jt 11:26 Erick Vera MD is Attending Physician. jm 11:28 Sulema Pack, BALTA is Primary Nurse. rs 11:29 Triage completed. rs 11:50 Valuables Remains with patient. Cardiac Monitoring On for Nurse Monitoring only. Pulse rs Ox - RN Monitoring Only NIBP On - RN Monitoring Only. Door closed. Noise minimized. Lights dimmed. Verbal reassurance given. Diet: Patient is NPO. 12:10 Accessed Medi-Port using accessed w/ # 20 Domingo needle, sterile technique, per hospital rs protocol. Clean & dry. Dressing intact. Flushes easily. 12:45 No apparent distress. Resting quietly. rs Administered Medications: Completed: Protonix 80 mg IVPB once 12:25 Drug: Zofran 4 mg; Route: IVP; Rate: 2 mg/min; Infused Over: 2 mins; Site: right rs subclavian; 14:38 Follow up: Response: No adverse reaction rs 12:37 Drug: Protonix 8 mg/hr; Volume: 100 ml; Route: IV; Rate: calculated rate; Infused Over: rs 10 hrs; Site: right subclavian; Delivery: IVPB Tubing; 14:38 Follow up: Response: No adverse reaction; IV Intake: 10ml rs 12:40 Drug: Protonix 80 mg; Volume: 100 ml; Route: IVPB; Rate: 400 ml/hr; Infused Over: 15 rs mins; Site: right subclavian; Delivery: IVPB Tubing; 12:50 Follow up: IV Status: Completed infusion; IV Intake: 100ml rs 13:23 Follow up: Response: No adverse reaction rs Intake: 12:50 IV: 100ml; Total: 100ml. rs 14:36 PO: 0ml; IV: 400ml; Tubes: 0ml (); Total: 500ml. rs 14:38 IV: 10ml; Total: 510ml. rs Output: 14:36 Urine: 0ml; Gastric: 0ml; Stool: 0; EBL: 0ml; Drainage: 0ml; Other: 0; Total: 0ml. rs Outcome: 14:17 ER care complete, transfer ordered by . maxwell 15:11 Patient left the ED. [facility] 15:11 Transferred: Patient will be transferred to: Other [facility] 15:11 Condition: stable 15:11 Report given to Michelle GIFFORD medical ICU, room 1072. 15:11 Instructed on need for transfer Signatures: Sulema Pack RN RN rs Devorah Centeno RN RN nv1 Erick Vera MD MD jm Tennant, Joanne jt
[2016-07-19 16:12] LABS: ANTIBODY SCREEN NEGATIVE; RH TYPE POSITIVE
[2016-07-19 16:13] LABS: CROSSMATCH IMMEDIATE SPIN COMPATIBLE
[2016-07-19] MEDS ORDERED: ONDANSETRON ODT 4 MG TAB.RAPDIS ONE (19:09)
[2016-07-22 10:56] LABS: ABO GROUP TYPE A
== END 2016-07-19 15:12 | disposition short-term general hospital (02) ==
LOC: ER 11:21
DX: I85.01 Esophageal varices with bleeding (principal); D62 Acute posthemorrhagic anemia; R53.1 Weakness; R53.83 Other fatigue; R53.81 Other malaise; Z79.899 Other long term (current) drug therapy; Z99.89 Dependence on other enabling machines and devices; Z74.3 Need for continuous supervision
CPT/HCPCS: 80048; 80076; 85007; 85027; 85610; 85730; 86850; 86900; 86901; 86920; 96374; 96375; 99285; J2405; P9040-BL